=== PATIENT | female | born 1945 | race Caucasian/White ===

== ENCOUNTER → 2018-01-02 10:23 | Outpatient (CLI) | payer MEDICARE, OTHER, SELFPAY ==
--- NOTE | 2018-01-02 10:29 | RAD_ITS ---
STUDY: X-RAY - CERVICAL SPINE REASON FOR EXAM: Female, 72 years old. Headaches. TECHNIQUE: 6 view(s) of the cervical spine were obtained including oblique views. COMPARISON: None FINDINGS: There are degenerative changes of the anterior atlantoaxial articulation. Normal odontoid process. Normal cervical lordosis. Anterior spondylosis at the C4-C5 and C5-C6 levels. There is multi-level degenerative disc disease with multilevel disc space narrowing. Facet joint osteoarthritis. There are atherosclerotic vascular calcifications of the carotid arteries. RAD/Cerv Spine 4 or 5 Views IMPRESSION: The space narrowing and mild anterior spondylosis at the C4-C5 and C5-C6 levels. Electronically Signed: Teodoro Monique MD at 14:15 EST Tel [phone], Service support ,
== END ==
PROVIDERS: Family Provider Family Medicine; PCP Family Medicine; Visit Provider Family Medicine
DX: R51 Headache (principal)
CPT/HCPCS: 72050

== ENCOUNTER 2018-01-27 11:30 | Outpatient (RCR) | payer MEDICARE, OTHER, SELFPAY ==
--- NOTE | 2018-01-09 11:38 | HP.PTEVAL_ITS ---
Patient's Visit Information ILANA RAMÍREZ is a 72 year old F referred to Physical Therapy by Chavez MANN with a diagnosis of HEADACHE, NECK PAIN, TENSION AND TIGHT. Date of Evaluation: 01/09/18 Physical Therapist: Karla Elizabeth - Visit Plan Frequency: 2-3x /Week Duration: 4-6 Weeks Plan: CERVICAL STM, US, ROM AND STRETCHING. CERVICAL ISOMETRICS. POSTURE CORRECTION/STRENGTHEING. WRITTEN HEP. - Subjective Subjective: Work/Leisure: RETIRED. WALKS A FEW TIMES A WEEK ABOUT 30 MIN. Disability: NO. Present symptoms: ODELL NECK PAIN WITH CRUNCHING SOUNDS. INTERMITTENT PICKETT'S. NOT SURE HOW OFTEN SHE IS HAVING PICKETT'S. Present since: ABOUT A YEAR OR TWO. Pain Scale: WORST 8/10, LEAST 0/10. Currently: 4/10. Commenced as a result of: NO APPARENT REASON. Symptoms at onset: SAME. Worse : I DON'T KNOW. Better: IBUPROFEN, HEATING PAD. Disturbed sleep: NO. Previous history/Previous treatment: JUST IBUPROFEN AND HEATING PAD. DIZZINESS : NO. TINNITIS: NO. NAUSEA: NO. DIFFICULTY SWOLLOWING: NO. Gait: NORMAL. Accidents: NO. Unexplained weight loss: NO. Imaging: NECK X-RAY RECENTLY - 3 AREAS LOOKING NOT SO GOOD. MRI ABOUT 3-4 WEEKS AGO - I REALLY WASN'T EVEN LOOKING AT IT. THIS THERAPIST WAS NOT ABLE TO FIND A NECK MRI IN THE EMR. PMH: UNREMARKABLE. Recent major surgery: NONE RECENT. OTHER: THIS PT CALLED AND SPOKE TO BEBE AT DR. MORTON'S OFFICE DUE TO PATIENTS CONFUSION DURING MEDICAL HISTORY REPORTING. KIM REPORTS PATIENT HAS BEEN DIAGNOSED WITH DEMENTIA AND HAS A REFERRAL FOR A SPECIALIST AT [facility]. SHE HAS NOT HAD AN MRI OF HER NECK. - Objective Sitting Posture: FAIR. MILD FORWARD HEAD AND ROUNDED SHOULDERS. Active Correction of posture: NE. Other Observations: PATIENT IS PLEASANT AND COOPERATIVE TO WORK WITH. SHE IS ABLE TO FOLLOW SIMPLE COMMANDS WELL BUT SEEMS TO GET CONFUSED DURING SUBJECTIVE INTERVIEW. Motor deficit: ODELL UE'S GROSSLY 4/ 5. Sensory deficit: ODELL UE LIGHT TOUCH SENSATION APPEARS TO BE INTACT AND SYMMETRICAL. ROM deficit: ODELL UE ROM WFL. Reflexes: UNABLE TO ELICIT ODELL UE DTR'S BUT PATIENT VERY GUARDED. Dural Signs: NEGATIVE. CERVICAL MVMT LOSS: FLEX - NIL, PRO - NIL, EXT - MIN, RET - MOD, ODELL SB - MIN TO MOD, ODELL ROT - MIN. PATIENT HAS C/O CRUNCHING BUT NOT INCREASED PAIN WITH CERVICAL ROM TESTING INTO ODELL SB AND ROTATION ESPECIALLY LEFT ROATION. Palpation: PATIENT HAS INCREASED MUSCLE TONE WITH PALPATION OF ODELL CERVICAL MUSCULATURE. SHE DENIES PAIN WITH PALPATION OF CERVICAL SPINE, THORACIC SPINE AND OCCIPUT. - Goals Goal 1:: DECREASE C/O HEAD AND NECK PAIN (AND CRUNCHING IN NECK WITH MVMT). Goal Time Frame: 4-6 Weeks Goal 2:: INCREASE FUNCTION ROM OF NECK. Goal Time Frame: 4-6 Weeks Goal 3:: IMPROVE POSTURE CONTROL AND STRENGTH Goal Time Frame: 4-6 Weeks Goal 4:: INSTRUCT IN PROPHYLAXIS Goal Time Frame: 4-6 Weeks - Rehabilitation Potential Rehabilitation Potential: Fair - Anticipated Interventions Patient/Client Instruction: Educate patient on: Condition, Plan of Care, Risk Factors, Benefits of Fitness Program For the Purpose of:: To improve self management Therapeutic Exercise to Include: Strength training, Postural training, Flexibilty training, Active ROM, Scapular Strength/Stabilization For the Purpose of:: To decrease pain, To increase ROM, To improve ability of physical actions for home/community/work/leisure Manual Therapy Techniques to Include: Soft tissue mobilization For the Purpose of:: To decrease pain, To increase ROM Thermo therapy (hot pack): Yes Ultrasound (thermal/non thermal): Yes For the Purpose of:: To decrease pain, To increase ROM Thank you for the opportunity to evaluate your patient. For Medicare and Medicare HMO plans, please review the plan of care and approve it. It will need to be FAXED BACK to us at [phone] for Medicare purposes. Please let me know if there are questions or concerns regarding this plan of care. Physician Signature: Date:
--- NOTE | 2018-01-27 11:54 | HP.PTDCSUM_ITS ---
HP - PT D/C Summary It has been my pleasure to treat ILANA RAMÍREZ under orders from Chavez Morton, for the diagnosis of HEADACHE, NECK PAIN, TENSION AND TIGHT for a total of 5 visit(s). Discharge Date: 01/27/18 Please see the following information for a summary of their discharge status. - Subjective Subjective: PATIENT REPORTS SHE IS NOT GOING TO COME BACK TO PT BECAUSE SHE IS LEAVING SATURDAY FOR 2 WEEKS. PATIENT REPORTS SHE IS A LITTLE BETTER SINCE STARTING PT. PATIENT REPORT SHE WANTS TO WAIT TO SEE HOW SHE IS AFTER PT TO DECIDE IF SHE WANTS TO COME BACK. SHE PLANS TO SEE DR. MORTON IN JANUARY WHEN SHE GETS BACK. PATIENT REPORTS COMPLIANCE WITH HEP AND PLANS TO CONTINUE THEM. STATES THEY HELP HER NECK FEEL BETTER BUT THE PILL IS WHAT HELPS HER HEADACHE. - Pain NECK Pain Intensity (Out of 10): Unrated - Objective Objective/Function: UPON EXAM, THERE ARE NO SIGNIFICANT OBJECTIVE CHANGES WITH TESTING TODAY COMPARED TO INITIAL EVAL HOWEVER PATIENT IS INDEP WITH A HEP NOW ( WITH WRITTEN INSTRUCTIONS) AND SHE REPORTS SHE FEELS BETTER DURING AND AFTER THE EX'S. CERVICAL MVMT LOSS: FLEX - NIL, PRO - NIL, EXT - MIN, RET - MOD, ODELL SB - MOD, ODELL ROT - MIN. PATIENT HAS C/O CRUNCHING BUT NOT INCREASED PAIN WITH CERVICAL ROM TESTING INTO ODELL SB AND ROTATION ESPECIALLY LEFT ROATION SHE DID AT INITIAL EVAL. Palpation: PATIENT HAS INCREASED MUSCLE TONE WITH PALPATION OF ODELL CERVICAL MUSCULATURE. SHE DENIES PAIN WITH PALPATION OF CERVICAL SPINE, THORACIC SPINE AND OCCIPUT. - Goals Goal 1:: DECREASE C/O HEAD AND NECK PAIN (AND CRUNCHING IN NECK WITH MVMT). Goal 2:: INCREASE FUNCTION ROM OF NECK. Goal Progress: Progressing Goal 3:: IMPROVE POSTURE CONTROL AND STRENGTH Goal 4:: INSTRUCT IN PROPHYLAXIS - Plan Plan: PROGRESS STRETCHING AT HOME NEXT VISIT. AND TRY STM IN SUPINE. - D/C Information If there are questions or concerns regarding this patient's physical therapy, please feel free to call me at [phone]. Thank you for the referral of this patient. Sincerely, Karla Elizabeth
== END 2018-01-27 19:00 | disposition home or self-care (01) ==
LOC: PT 11:30
PROVIDERS: Family Provider Family Medicine; PCP Family Medicine; Visit Provider Family Medicine
DX: M54.12 Radiculopathy, cervical region (principal); R51 Headache
CPT/HCPCS: 97035; 97140; 97162; 97530

== ENCOUNTER → 2018-08-05 12:10 | Outpatient (CLI) | payer MEDICARE, OTHER, SELFPAY | PROVIDERS: Family Provider Family Medicine; PCP Family Medicine | DX: G93.40 Encephalopathy, unspecified (principal); R90.89 Other abnormal findings on diagnostic imaging of central nervous system; Z86.73 Personal history of transient ischemic attack (TIA), and cerebral infarction without residual deficits | CPT/HCPCS: 70544; 70549; 70553; A9585 ==

== ENCOUNTER → 2018-08-06 12:48 | Outpatient (CLI) | payer MEDICARE, OTHER, SELFPAY | PROVIDERS: Family Provider Family Medicine; PCP Family Medicine | DX: Z86.73 Personal history of transient ischemic attack (TIA), and cerebral infarction without residual deficits (principal) | CPT/HCPCS: 93306; A4216 ==

== ENCOUNTER → 2019-01-22 08:28 | Outpatient (CLI) | payer MEDICARE, OTHER, SELFPAY ==
[2019-01-22 10:31] LABS: Color, Urine Yellow (Yellow); Glucose, Dipstick Normal (Normal); Ketone-Dipstick Negative (Negative); Leukocyte Esterase-Dipstick Negative /ul (Negative); Nitrite-Dipstick Negative (Negative); Occult Blood-Urine Negative /ul (Negative); Protein-Dipstick Negative (Negative); Urine Bilirubin Dipstick Negative (Negative); Urine Clarity Clear (Clear); Urine Urobilinogen Normal (Normal)
[2019-01-22 10:42] LABS: Vitamin D,25 Hydroxy 45.2 ng/mL (29.95-100.01)
[2019-01-22 10:55] LABS: Anion Gap 7 (5-15); BUN 21 mg/dL (7-18); BUN/Creat Ratio 26.5 RATIO (10-20); Calcium,Total 8.7 mg/dL (8.5-10.1); Chloride 107 mmol/L (98-107); Cholesterol 213 mg/dL (200); Creatinine, Serum 0.79 mg/dL (0.55-1.02); EST Glomerular Filtration Rate 76 mL/min (>60); Est Glom Filt Rate - Afr Amer 92 mL/min (>60); Glucose 90 mg/dL (74-106); High Density Lipoprotein 60 mg/dL; Potassium 4.3 mmol/L (3.5-5.1); Sodium Level 144 mmol/L (136-145); Thyroid Stim Hormone (TSH) 2.07 uIU/mL (0.358-3.74); Triglycerides 57 mg/dL; Very Low Density Lipoprotein 11 mg/dL (5-40)
== END ==
PROVIDERS: Family Provider Family Medicine; PCP Family Medicine; Visit Provider Family Medicine
DX: M85.80 Other specified disorders of bone density and structure, unspecified site (principal); Z13.220 Encounter for screening for lipoid disorders
CPT/HCPCS: 36415; 80048; 80061; 81002; 82306; 84443

== ENCOUNTER → 2019-01-27 13:22 | Outpatient (CLI) | payer MEDICARE, OTHER, SELFPAY ==
--- NOTE | 2019-01-27 13:29 | BD_ITS ---
STUDY: DUAL ENERGY X-RAY ABSORPTIOMETRY / DXA REASON FOR EXAM: Female, 73 years old. The patient is postmenopausal. Loss of height. TECHNIQUE: Bone Mineral Density (BMD) measurements of lumbar spine and bilateral hips were obtained. COMPARISON: Comparison is made with prior study dated February 06, 2000. FINDINGS: Lumbar Spine (L1-L4): g/cm2 (0.911) / T-score (-2.2) / Z-score (-0.5) Findings are suggestive of osteopenia with a moderate fracture risk. Left Femur Total: g/cm2 (0.762) / T-score (-2.0) / Z-score (-0.3) Left Femoral Neck: g/cm2 (0.747) / T-score (-2.1) / Z-score (-0.3) Right Femur Total: g/cm2 (0.766) / T-score (-1.1) / Z-score (-0.3) Right Femoral Neck: g/cm2 (0.757) / T-score (-2.0) / Z-score (0.2) The T-Scores on the most recent prior examination were: Lumbar Spine (L1-L4): There has been worsening of bone density since the previous examination. Left Femur Total: which represents a worsening of 23.3%. BD/Dexa Bone Density Study IMPRESSION: The patient is considered osteopenic as outlined below according to World [place] Organization (WHO) criteria with a moderate fracture risk. There has been worsening of bone density since the previous examination. Reference Information: The T-score is the number of standard deviations above or below the standard which is normal for young adults at their peak bone mineral density. The World Health Organization (WHO) interprets the T-scores as follows: Above -1 Normal bone density Between -1 and -2.5 Osteopenia Equal to / or below -2.5 Osteoporosis As a practical clinical guideline, osteopenia may be graded as follows: Mild -1 through -1.5 Moderate -1.6 through -2.0 Severe -2.1 through -2.4 The Z-score is the number of standard deviations above or below age-matched controls. A Z-score of less than -1.5 would be considered abnormal. References: 1. NIH Osteoporosis and Related Bone Diseases http://www.osteo.org 2. International Society for Clinical Densitometry http://www.iscd.org 3. National Osteoporosis Foundation http://www.nof.org Electronically Signed: Teodoro Monique, at 13:32 EST , Service support ,
== END ==
PROVIDERS: Family Provider Family Medicine; PCP Family Medicine; Visit Provider Family Medicine
DX: Z78.0 Asymptomatic menopausal state (principal); M85.80 Other specified disorders of bone density and structure, unspecified site
CPT/HCPCS: 77080

== ENCOUNTER → 2019-09-02 07:54 | Outpatient (CLI) | payer MEDICARE, OTHER, SELFPAY ==
--- NOTE | 2019-09-02 07:56 | BI_ITS ---
MAMMOGRAPHY - BILATERAL SCREENING REASON FOR EXAM: Female, 74 years old. Routine annual screening examination. PERTINENT HISTORY: Non-contributory. TECHNIQUE: Digital bilateral breast waqar (3D mammographic acquisition) in the CC and MLO projections. 2-D mediolateral oblique (MLO) and craniocaudad (CC) views of both breasts were obtained. CAD: Full Field Digital Mammography with Computer Added Detection was performed. COMPARISON: Comparison is made with prior outside examination September 01, 2018. FINDINGS: Breast Composition: The breasts are extremely dense, which lowers the sensitivity of mammography. There are no dominant masses or suspicious calcifications. No other significant abnormalities are identified. There has been no significant change since the prior study. BI/SCREEN MAMM (CAD) W/WAQAR BILAT IMPRESSION: Stable bilateral screening mammogram. Yearly follow-up mammogram recommended. (A) ASSESSMENT CATEGORY: BIRADS Category 1: Negative. A letter regarding these results will be sent to the patient by the facility within 30 days. Approximately 10% of breast cancers are not detected by mammography. A normal mammogram should not delay biopsy of a clinically suspicious abnormality. [id number] Electronically Signed: Teodoro Monique, at 9:54 EDT , Service support ,
== END ==
PROVIDERS: Family Provider Family Medicine; PCP Family Medicine; Referring Provider Family Medicine; Visit Provider Family Medicine
DX: Z12.31 Encounter for screening mammogram for malignant neoplasm of breast (principal)
CPT/HCPCS: 77063; 77067

== ENCOUNTER → 2020-04-06 08:37 | Outpatient (CLI) | payer MEDICARE, OTHER, SELFPAY ==
[2020-04-06 09:55] LABS: Hemoglobin 13.2 g/dL (12.0-15.0); Mean Corpuscular Hgb 32.8 pg (27.0-32.0); Mean Corpuscular Volume 99.5 fL (81-99); Mean Platelet Vol. 10.4 fl (6.2-12.0); Platelet Count 281 K/mm3 (150-450); RBC Distribution Width CV 12.4 % (11.6-14.6); RBC Distribution Width SD 45.2 fl (35.1-43.9); Red Blood Count 4.02 M/mm3 (4.2-5.4); White Blood Count 2.8 K/mm3 (4.4-11.0)
[2020-04-06 10:16] LABS: Vitamin D,25 Hydroxy 71.8 ng/mL
[2020-04-06 10:22] LABS: Anion Gap 4 (5-15); BUN 25 mg/dL (7-18); BUN/Creat Ratio 29.6 RATIO (10-20); Calcium,Total 8.8 mg/dL (8.5-10.1); Chloride 107 mmol/L (98-107); Cholesterol 243 mg/dL (200); Creatinine, Serum 0.85 mg/dL (0.55-1.02); EST Glomerular Filtration Rate 70 mL/min (>60); Est Glom Filt Rate - Afr Amer 85 mL/min (>60); Glucose 78 mg/dL (74-106); High Density Lipoprotein 70 mg/dL; Potassium 4.3 mmol/L (3.5-5.1); Sodium Level 143 mmol/L (136-145); Thyroid Stim Hormone (TSH) 2.33 uIU/mL (0.358-3.74); Triglycerides 51 mg/dL; Very Low Density Lipoprotein 10 mg/dL (5-40)
== END ==
PROVIDERS: PCP Family Medicine; Visit Provider Family Medicine
DX: K58.9 Irritable bowel syndrome, unspecified (principal); M85.80 Other specified disorders of bone density and structure, unspecified site; F41.9 Anxiety disorder, unspecified; Z13.220 Encounter for screening for lipoid disorders
CPT/HCPCS: 36415; 80048; 80061; 82306; 84443; 85027

== ENCOUNTER → 2020-10-11 08:16 | Outpatient (CLI) | payer MEDICARE, OTHER, SELFPAY ==
--- NOTE | 2020-10-11 08:18 | BI_ITS ---
MAMMOGRAPHY - BILATERAL SCREENING REASON FOR EXAM: Female, 75 years old. Routine annual screening examination. PERTINENT HISTORY: Non-contributory. TECHNIQUE: Digital bilateral breast waqar (3D mammographic acquisition) in the CC and MLO projections. 2-D mediolateral oblique (MLO) and craniocaudad (CC) views of both breasts were obtained. CAD: Full Field Digital Mammography with Computer Added Detection was performed. COMPARISON: Comparison is made with prior study dated 09/02/2019. FINDINGS: Breast Composition: The breasts are extremely dense, which lowers the sensitivity of mammography. There are no dominant masses or suspicious calcifications. No other significant abnormalities are identified. There has been no significant change since the prior study. BI/SCREEN MAMM (CAD) W/WAQAR BILAT IMPRESSION: Stable bilateral screening mammogram. Yearly follow-up mammogram recommended. (A) ASSESSMENT CATEGORY: BIRADS Category 1: Negative. A letter regarding these results will be sent to the patient by the facility within 30 days. Approximately 10% of breast cancers are not detected by mammography. A normal mammogram should not delay biopsy of a clinically suspicious abnormality. [id number] Electronically Signed: Teodoro Monique, at 9:57 EST , Service support ,
== END ==
PROVIDERS: PCP Family Medicine; Referring Provider Family Medicine; Visit Provider Family Medicine
DX: Z12.31 Encounter for screening mammogram for malignant neoplasm of breast (principal)
CPT/HCPCS: 77063; 77067

== ENCOUNTER → 2021-06-08 14:53 | Outpatient (CLI) | payer MEDICARE, OTHER, SELFPAY ==
--- NOTE | 2021-06-08 14:57 | RAD_ITS ---
STUDY: X-RAY - CERVICAL SPINE REASON FOR EXAM: Female, 76 years old. CERVICALGIA TECHNIQUE: 5 view(s) of the cervical spine were obtained including oblique views. COMPARISON: Comparison is made with prior study dated 01/02/2008. FINDINGS: Normal anterior atlantoaxial articulation. Normal odontoid process. Normal cervical lordosis. There is multi-level endplate spondylosis. There is multi-level degenerative disc disease with multilevel disc space narrowing. This is worse at the C4-C5 and C5-C6 levels. Normal visualized intervertebral neuroforamina. Facet joint osteoarthritis. The soft tissue structures are unremarkable. RAD/Cerv Spine 4 or 5 Views IMPRESSION: Normal x-ray examination of the visualized cervical spine. Electronically Signed: Teodoro Monique MD at 15:16 EDT , Service support ,
== END ==
PROVIDERS: PCP Family Medicine; Referring Provider Family Medicine; Visit Provider Family Medicine
DX: M54.2 Cervicalgia (principal)
CPT/HCPCS: 72050

== ENCOUNTER 2021-07-24 13:00 | Outpatient (RCR) | payer MEDICARE, OTHER, SELFPAY ==
--- NOTE | 2021-06-23 15:09 | HP.PTEVAL_ITS ---
Patient's Visit Information ILANA RAMÍREZ is a 76 year old F referred to Physical Therapy by Dr. Zain Perez MD with a diagnosis of CERVICALGIA. Date of Evaluation: 06/23/21 Physical Therapist: Karla Elizabeth PT, Cert MDT - Visit Plan Frequency: 2-3x /Week Duration: 4-6 Weeks Plan: DEMENTIA DO NOT LEAVE PATIENT UNATTENDED BEFORE, DURING OR AFTER TREATMENT. US X 4-6 TREATMENTS TO ODELL POSTERIOR CERVICAL REGIONS. POSTURE CORRECTION/STRENGTHENING, INSTRUCTION IN APPROPRIATE BODY MECHANICS AND ACTIVITY MODIFICATIONS. ODELL UE ROM, STRETCHING AND STRENGTHENING. HEP INSTRUCTION. CAREGIVER INSTRUCTION NEEDED. WRITTEN HEP NECESSARY. TRY THE FOLLOWING EX'S TOLERATED ABOUT 3 EX'S ADDED PER VISIT: REP RET IN SITTING. REP RET IN LYING. SCAP SQUEEZES. DEEP NECK FLEXOR LIFT. PRONE W'S. UE WALL SLIDES. PRONE ROWS. UE TBAND WALL WALKS. ANTERIOR/MIDDLE SCALENE STRETCH. UPPER TRAP STRETCH. LEVATOR SCAPULAE STRETCH. CHEST/PEC MAJOR AND MINOR STRETCH - Subjective Diagnosis: CERVICALGIA. LIKES TO WORK OUTSIDE. Work/Leisure: RETIRED. Present symptoms: RIGHT NECK PAIN. Present since: YEARS. Pain Scale: Worst - 9/10 Least - 0/10? Currently: 0/10. Commenced as a result of: SWEEPING DRIVEWAY WITH BROOM. Symptoms at onset: RIGHT NECK AND UPPER TRAP AREA. Worse: PATIENT UNABLE TO ANSWER BUT PATIENT'S REPORTS IT SEEMS TO BE AFTER SHE WORKS OUTSIDE. Better: PATIENT AGAIN UNABLE TO ANSWER BUT PATIENTS REPORTS A HEATING PAD AND MALOXACAM SEEMS TO HELP. Disturbed sleep: NO. Previous history/Previous treatment: PT ABOUT 2018. NO CLEANER AND POLISHER CONSULTS. NO PAIN MGMT. This episode: MALOXACAM, PT CONSULT. Dizziness: NO. Tinnitis: NO. Nausea: NO. Shortness of Breath: NO. Difficulty Swollowing: NO. Gait: NORMAL. Accidents: NO. Unexplained weight loss: NO. Imaging: STUDY: X-RAY - CERVICAL SPINE. REASON FOR EXAM: Female, 76 years old. CERVICALGIA. TECHNIQUE: 5 view(s) of the cervical spine were obtained including. oblique views. COMPARISON: Comparison is made with prior study dated 01/02/2008. . FINDINGS: Normal anterior atlantoaxial articulation. Normal odontoid process. Normal cervical lordosis. There is multi-level endplate spondylosis. There is multi-level degenerative disc disease with multilevel disc space. narrowing. This is worse at the C4-C5 and C5-C6 levels. Normal visualized. intervertebral neuroforamina. Facet joint osteoarthritis. The soft tissue structures are unremarkable. . RAD/Cerv Spine 4 or 5 Views. IMPRESSION: Normal x-ray examination of the visualized cervical spine. . Electronically Signed: Teodoro Monique MD. at 15:16 EDT. PMH/Recent major surgery: COGNITIVE DECLINE PER . - Objective COGNITIVE: PATIENT IS HAVING DIFFICULTY FOLLOWING SIMPLE COMMANDS. RESPONDS BETTER TO VISUAL CUES THAN VERBAL. TACTILE CUES HELP TOO. PATIENTS IS VERY HELPFUL WITH HISTORY AND HELPING PATIENT FOLLOW DIRECTIONS FOR TESTING TODAY. Sitting Posture/Standing Posture: FH. RS'S. Active Correction of posture: NE. Other Observations: INDEP GAIT AND TRANSFERS. PATIENT RUBS THE RIGHT SIDE OF HER NECK A LOT DURING SESSION TODAY. Motor deficit: ODELL UE STRENGTH WFL. Sensory deficit: ODELL UE LIGHT TOUCH SENSATION APPEARS INTACT AND SYMMETRICAL. ROM deficit: ODELL UE ROM WFL. Reflexes: NT. Dural Signs: NEGATIVE. Cervical Mvmt Loss: Flex: NIL. Pro: NIL. Ext: MOD. Ret: MEHUL. RSB: MIN. LSB: MOD. R Rot: MOD. L Rot: MOD. PATIENT C/O INCRASED RIGHT NECK PAIN WITH L SB TESTING. Postural strength: FAIR. Palpation: NO ACUTE TENDERNESS WITH PALPATION OF ODELL UT'S, UPPER THORACIC SPINE, CERVICAL SPINE OR OCCIPUT REGIONS BUT INCREASED ODELL CERVICAL MUSCLE TONE THROUGHOUT. TREATMENT: NEUROMUSCULAR REEDUCATION - RETRAINING OF MVMT AND POSTURE FOR SITTING AND STANDING ACTIVITIES. EDUCATED ON PROPER POSTURE CONTROL FOR PATIENT AND ASSESMENT OF POSTURE IN HER FAVORITE CHAIR. ALSO INSTRUCTED PATIENT AND IN APPROPRIATE ACTIVITY MODIFICATIONS AVOIDING PROLONGED OVER-HEAD REACHING/LOOKING UP, PROLONGED REACHING AND EXCESSIVE REPETATIVE ACTIVITIES WITHOUT TAKING BREAKS SUCH SWEEPING THE DRIVEWAY. IS ABLE TO COMMUNICATE A GOOD UNDERSTANDING OF INSTRUCTIONS HOWEVER PATIENT IS NOT. OTHER: CASE CONFERENCE TODAY WITH SEVERO Rangel THE KNITTING MACHINE OPERATOR SHE IS SCHEDULED WITH AFTER EVAL. - Balance/Special Test Scores Oswestry Neck Score: 7 - Goals Goal 1:: DECREASE C/O R NECK PAIN Goal Time Frame: 4-6 Weeks Goal 2:: IMPROVE LIFTING, HOMEMAKING AND RECREATIONAL PAINFREE FUNCTION. Goal Time Frame: 4-6 Weeks Goal 3:: INSTRUCT IN PROPHYLAXIS Goal Time Frame: 4-6 Weeks - Anticipated Interventions Patient/Client Instruction: Educate patient on: Condition, Plan of Care, Risk Factors For the Purpose of:: To improve self management Therapeutic Exercise to Include: Strength training, Body mechanics, Postural training, Flexibilty training, Neuromotor development, Scapular Strength/Stabilization For the Purpose of:: To decrease pain, To increase ROM, To improve muscle performance and motor function, To increase tolerance to activity/condition/position, To improve ability of physical actions for home/community/work/leisure Ultrasound (thermal/non thermal): Yes For the Purpose of:: To decrease pain, To improve nutrient delivery to tissue Thank you for the opportunity to evaluate your patient. For Medicare and Medicare HMO plans, please review the plan of care and approve it. It will need to be FAXED BACK to us at [phone] for Medicare purposes. For Medicare only, by signing this I certify the plan of care. Please let me know if there are questions or concerns regarding this plan of care. Physician Signature: Date:
--- NOTE | 2021-07-24 13:22 | HP.PTDCSUM ---
It has been my pleasure to treat ILANA RAMÍREZ referred by Dr. Zain Perez MD, with the diagnosis of CERVICALGIA for a total of 10 visit(s). Discharge Date: Please see the following information for a summary of their discharge status. Subjective: PATIENTS ANSWERED THIS PT'S QUESTIONS FOR PATIENT TODAY AND FILLED OUT THE QUESTIONAIRE FOR HER. ANKITAMISHA STATES PATIENT DOES NOT SEEM TO BE HAVING A PROBLEM WITH HER NECK ANYMORE AND THE HOME EX'S ARE GOING WELL. PATIENTS REPORTS THE PAIN BEHAVIOR HE WAS SEEING BEFORE SEEMS TO BE GONE. % Improvement: 100 Objective/Function: PATIENT WAS SEEN TODAY FOR RE-ASSESSMENT OF PROGRESS TOWARD THE SET PT GOALS AND THE NEED FOR FURTHER PHYSICAL THERAPY VS READINESS FOR DISCHARGE. UPON EXAM TODAY OBJECTIVE TEST MEASUREMENTS ARE THE SAME AT INITIAL EVAL EXCEPT PATIENT IS NOT RUBBING THE SIDE OF HER NECK AND DENIES PAIN WITH CERVICAL ROM TESTING ALL PLANES. Goal 1:: DECREASE C/O R NECK PAIN Goal Progress: Goal Met Goal 2:: IMPROVE LIFTING, HOMEMAKING AND RECREATIONAL PAINFREE FUNCTION. Goal Progress: Goal Met Goal 3:: INSTRUCT IN PROPHYLAXIS Goal Progress: Goal Met Plan: D/C TO HEP. PATIENT AND AGREEABLE. If there are questions or concerns regarding this patient's physical therapy, please feel free to call me at [phone]. Thank you for the referral of this patient. Sincerely, Karla Elizabeth, PT, Cert MDT Balance/Gait/Functional tests - Balance/Special Test Scores Oswestry Neck Score: 2
== END 2021-07-24 15:52 | disposition home or self-care (01) ==
LOC: PT 13:00
PROVIDERS: PCP Family Medicine; Referring Provider Family Medicine; Visit Provider Family Medicine
DX: M54.2 Cervicalgia (principal)
CPT/HCPCS: 97035; 97110; 97112; 97162; 97164

== ENCOUNTER → 2021-09-11 13:42 | Outpatient (CLI) | payer MEDICARE, OTHER, SELFPAY | PROVIDERS: PCP Family Medicine; Visit Provider Family Medicine | DX: R35.0 Frequency of micturition (principal) | CPT/HCPCS: 87086; 87088 ==

== ENCOUNTER → 2021-09-12 07:27 | Outpatient (CLI) | payer MEDICARE, OTHER, SELFPAY ==
[2021-09-12 09:57] LABS: Hematocrit 37.4 % (37-47); Hemoglobin 12.8 g/dL (12.0-15.0); Mean Corp Hgb Conc 34.2 g/dL (32-36); Mean Corpuscular Hgb 33.9 pg (27.0-32.0); Mean Corpuscular Volume 98.9 fL (81-99); Mean Platelet Vol. 10.4 fl (6.2-12.0); Platelet Count 230 K/mm3 (150-450); RBC Distribution Width CV 13.1 % (11.6-14.6); RBC Distribution Width SD 47.7 fl (35.1-43.9); Red Blood Count 3.78 M/mm3 (4.2-5.4)
[2021-09-12 10:31] LABS: ALB/GLOB Ratio 1.1 RATIO (0.9-2.4); AST(SGOT) 18 U/L (15-37); Alanine Aminotransfer ALT/SGPT 27 U/L (13-56); Albumin, Serum 3.4 g/dL (3.2-5.0); Alkaline Phosphatase 114 U/L (45-117); Anion Gap 8 (5-15); BUN 26 mg/dL (7-18); BUN/Creat Ratio 31.4 RATIO (10-20); Calcium,Total 8.7 mg/dL (8.5-10.1); Chloride 105 mmol/L (98-107); Cholesterol 174 mg/dL (200); Creatinine, Serum 0.83 mg/dL (0.55-1.02); EST Glomerular Filtration Rate 72 mL/min (>60); Est Glom Filt Rate - Afr Amer 87 mL/min (>60); Globulin 3.1 g/dL (2.2-4.2); Glucose 88 mg/dL (74-106); High Density Lipoprotein 70 mg/dL; Potassium 4.1 mmol/L (3.5-5.1); Protein, Total 6.5 g/dL (6.4-8.2); Sodium Level 142 mmol/L (136-145); Triglycerides 39 mg/dL; Very Low Density Lipoprotein 8 mg/dL (5-40)
[2021-09-12 10:40] LABS: Vitamin D,25 Hydroxy 66.2 ng/mL
== END ==
PROVIDERS: PCP Family Medicine; Referring Provider Family Medicine; Visit Provider Family Medicine
DX: E78.5 Hyperlipidemia, unspecified (principal); R41.3 Other amnesia; M85.80 Other specified disorders of bone density and structure, unspecified site
CPT/HCPCS: 36415; 80053; 80061; 82306; 84443; 85027

== ENCOUNTER → 2021-10-31 12:26 | Outpatient (CLI) | payer MEDICARE, OTHER, SELFPAY ==
--- NOTE | 2021-10-31 12:30 | BI_ITS ---
MAMMOGRAPHY - BILATERAL SCREENING REASON FOR EXAM: Female, 76 years old. Routine annual screening examination. PERTINENT HISTORY: Non-contributory. TECHNIQUE: Digital bilateral breast fausto (3D mammographic acquisition) in the CC and MLO projections. 2-D mediolateral oblique (MLO) and craniocaudad (CC) views of both breasts were obtained. CAD: Full Field Digital Mammography with Computer Added Detection was performed. COMPARISON: Comparison is made with prior study dated 10/11/2020 and 09/02/2019. FINDINGS: Breast Composition: The breasts are extremely dense, which lowers the sensitivity of mammography. There are no dominant masses or suspicious calcifications. No other significant abnormalities are identified. There has been no significant change since the prior study. BI/SCREENING MAMM (CAD), BILAT IMPRESSION: Stable bilateral screening mammogram. Yearly follow-up mammogram recommended. (A) ASSESSMENT CATEGORY: BIRADS Category 1: Negative. A letter regarding these results will be sent to the patient by the facility within 30 days. Approximately 10% of breast cancers are not detected by mammography. A normal mammogram should not delay biopsy of a clinically suspicious abnormality. [id number] Electronically Signed: Teodoro Monique MD at 13:26 EST , Service support ,
--- NOTE | 2021-10-31 13:46 | BD_ITS ---
STUDY: DUAL ENERGY X-RAY ABSORPTIOMETRY / DXA REASON FOR EXAM: Female, 76 years old. [id number]. The patient is postmenopausal. TECHNIQUE: Bone Mineral Density (BMD) measurements of lumbar spine and bilateral hips were obtained. COMPARISON: Comparison is made with prior study dated 01/27/2019. FINDINGS: Lumbar Spine (L1-L4): g/cm2 (0.744) / T-score (-2.5) / Z-score (-0.1) Findings are suggestive of osteopenia with a high fracture risk. Left Femur Total: g/cm2 (0.693) / T-score (-2.0) / Z-score (-0.2) Left Femoral Neck: g/cm2 (0.594) / T-score (-2.3) / Z-score (-0.2) Right Femur Total: g/cm2 (0.715) / T-score (-1.9) / Z-score (-0.1) Right Femoral Neck: g/cm2 (0.594) / T-score (-2.3) / Z-score (-0.2) The T-Scores on the most recent prior examination were: Lumbar Spine (L1-L4): There has been worsening of bone density since the previous examination. Left Femur Total: which represents a worsening of 1.4%. Right Femur Total: which represents an improvement of 1.1%. BD/Dexa Bone Density Study IMPRESSION: The patient is considered osteopenic as outlined below according to [place] Organization (WHO) criteria with a moderate fracture risk. There has been worsening of bone density since the previous examination. Reference Information: The T-score is the number of standard deviations above or below the standard which is normal for young adults at their peak bone mineral density. The World Health Organization (WHO) interprets the T-scores as follows: Above -1 Normal bone density Between -1 and -2.5 Osteopenia Equal to / or below -2.5 Osteoporosis As a practical clinical guideline, osteopenia may be graded as follows: Mild -1 through -1.5 Moderate -1.6 through -2.0 Severe -2.1 through -2.4 The Z-score is the number of standard deviations above or below age-matched controls. A Z-score of less than -1.5 would be considered abnormal. References: 1. NIH Osteoporosis and Related Bone Diseases www osteo.org 2. International Society for Clinical Densitometry www iscd.org 3. National Osteoporosis Foundation www nof.org Electronically Signed: Teodoro Monique MD at 15:49 EST , Service support ,
== END ==
PROVIDERS: PCP Family Medicine; Referring Provider Family Medicine; Visit Provider Family Medicine
DX: Z00.00 Encounter for general adult medical examination without abnormal findings (principal); Z12.31 Encounter for screening mammogram for malignant neoplasm of breast; Z78.0 Asymptomatic menopausal state
CPT/HCPCS: 77067; 77080

== ENCOUNTER 2021-12-14 12:31 | Outpatient (CLI) | payer MEDICARE, OTHER, SELFPAY ==
[2021-12-14 12:39] LABS: Bacteria 0 SEEN /hpf (None Seen); Mucous, Urine 0 SEEN /hpf (<or=2+); Red Blood Cells-Urine 0 SEEN /hpf (0-5); Squamous Epithelial Cells - UA 0 SEEN /hpf (5-10); White Blood Cells 0 SEEN /hpf (0-5)
[2021-12-14 15:20] LABS: Color, Urine Yellow (Yellow); Glucose, Dipstick Normal (Normal); Ketone-Dipstick Negative (Negative); Leukocyte Esterase-Dipstick Negative /ul (Negative); Nitrite-Dipstick Negative (Negative); Occult Blood-Urine Negative /ul (Negative); Protein-Dipstick Negative (Negative); Urine Bilirubin Dipstick Negative (Negative); Urine Clarity Clear (Clear); Urine Urobilinogen Normal (Normal)
[2021-12-14 15:41] LABS: Absolute Lymphocyte Count 0.66 X10^3/uL (0.83-4.51); Absolute Neutrophil Count 2.5 X10^3/uL (2.0-7.7); Basophil# 0.03 X10^3/uL; Basophil% 0.8 % (0-1); Eosinophil# 0.26 X10^3/uL; Eosinophils% 6.7 % (0-5); Hematocrit 36.2 % (37-47); Hemoglobin 12.3 g/dL (12.0-15.0); Lymphocyte # 0.66 X10^3/ul (0.83-4.51); Lymphocyte % 17.1 % (19-41); Mean Corpuscular Hgb 34.4 pg (27.0-32.0); Mean Corpuscular Volume 101.1 fL (81-99); Mean Platelet Vol. 10.9 fl (6.2-12.0); Monocyte# 0.42 X10^3/uL; Monocyte% 10.9 % (0-10); NRBC Flagged by Analyzer 0 % (0-5); Neutrophil # 2.49 X10^3/uL (2.7-7.7); Neutrophil % 64.2 % (47-70); Platelet Count 248 K/mm3 (150-450); RBC Distribution Width CV 13.2 % (11.6-14.6); RBC Distribution Width SD 49.4 fl (35.1-43.9); Red Blood Count 3.58 M/mm3 (4.2-5.4); White Blood Count 3.9 K/mm3 (4.4-11.0)
== END 2021-12-14 23:59 | disposition short-term general hospital (02) ==
LOC: MFPLAB 12:32
PROVIDERS: PCP Family Medicine; Referring Provider Family Medicine; Visit Provider Family Medicine
DX: D72.819 Decreased white blood cell count, unspecified (principal); R35.0 Frequency of micturition
CPT/HCPCS: 36415; 81001; 85025; 87086; 87088

== ENCOUNTER → 2022-05-30 | Outpatient (CLI) | payer MEDICARE, OTHER, SELFPAY ==
[2022-05-30 09:52] LABS: Hematocrit 36.9 % (37-47); Hemoglobin 12.6 g/dL (12.0-15.0); Mean Corp Hgb Conc 34.1 g/dL (32-36); Mean Corpuscular Hgb 35.4 pg (27.0-32.0); Mean Corpuscular Volume 103.7 fL (81-99); Mean Platelet Vol. 10.2 fl (6.2-12.0); Platelet Count 218 K/mm3 (150-450); RBC Distribution Width CV 13.1 % (11.6-14.6); RBC Distribution Width SD 50.4 fl (35.1-43.9); Red Blood Count 3.56 M/mm3 (4.2-5.4); White Blood Count 2.1 K/mm3 (4.4-11.0)
[2022-05-30 10:10] LABS: Vitamin B12 618 pg/mL (211-911)
[2022-05-30 10:41] LABS: ALB/GLOB Ratio 1.3 RATIO (0.9-2.4); AST(SGOT) 16 U/L (15-37); Alanine Aminotransfer ALT/SGPT 22 U/L (13-56); Albumin, Serum 3.6 g/dL (3.2-5.0); Alkaline Phosphatase 90 U/L (45-117); Anion Gap 4 (5-15); BUN 26 mg/dL (7-18); BUN/Creat Ratio 32.1 RATIO (10-20); Calcium,Total 8.9 mg/dL (8.5-10.1); Chloride 108 mmol/L (98-107); Creatinine, Serum 0.81 mg/dL (0.55-1.02); EST Glomerular Filtration Rate 73 mL/min (>60); Est Glom Filt Rate - Afr Amer 88 mL/min (>60); Globulin 2.8 g/dL (2.2-4.2); Glucose 94 mg/dL (74-106); Potassium 3.9 mmol/L (3.5-5.1); Protein, Total 6.4 g/dL (6.4-8.2); Sodium Level 143 mmol/L (136-145)
[2022-06-05 16:58] LABS: Vitamin B1, Thiamine 144.6 nmol/L (66.5-200.0)
== END | disposition home or self-care (01) ==
PROVIDERS: PCP Family Medicine; Referring Provider Psychiatry & Neurology Neurology; Visit Provider Psychiatry & Neurology Neurology
DX: G30.1 Alzheimer's disease with late onset (principal); F02.80 Dementia in other diseases classified elsewhere, unspecified severity, without behavioral disturbance, psychotic disturbance, mood disturbance, and anxiety
CPT/HCPCS: 36415; 80053; 82607; 82746; 84425; 84443; 85027

== ENCOUNTER 2022-06-08 13:50 | Outpatient (CLI) | payer MEDICARE, OTHER, SELFPAY ==
--- NOTE | 2022-06-08 13:52 | CT_ITS ---
STUDY: CT BRAIN WITHOUT CONTRAST REASON FOR EXAM: Female, 77 years old. Dementia RADIATION DOSAGE (If Supplied By Facility): CTDIvol = ( 47.06 ) mGy, DLP = ( 819.74 ) mGycm TECHNIQUE: Transaxial CT imaging of the brain was performed without administration of intravenous contrast material. Individualized dose optimization techniques were used for this CT. COMPARISON: No relevant priors. FINDINGS: Normal soft tissue structures. Normal calvarium. Mild cortical atrophy with patchy chronic small vessel ischemic changes in the periventricular deep white matter tracts. Prominent ventricles, sulci and sylvian fissures due to atrophy. No midline shift. Small wedge-shaped focus of encephalomalacia with sulcal prominence in the left posterior parietal lobe, extending through the cortex and subcortical white matter.. The basal ganglia are symmetric. No intracranial mass. There is no intracranial hemorrhage. There are no findings of an acute ischemic infarction. The middle cerebral arteries are not hyperdense. Vascular is present. The visualized paranasal sinuses and mastoid air cells are clear. CT/Brain/Head without Contrast IMPRESSION: Atrophy with chronic small vessel ischemic changes. 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 No acute intracranial abnormality. Electronically Signed: Roberto Espinoza MD at 6:09 EDT ,
== END 2022-06-08 23:59 | disposition home or self-care (01) ==
LOC: CT 13:51
PROVIDERS: PCP Family Medicine; Referring Provider Psychiatry & Neurology Neurology; Visit Provider Psychiatry & Neurology Neurology
DX: G31.9 Degenerative disease of nervous system, unspecified (principal); F02.80 Dementia in other diseases classified elsewhere, unspecified severity, without behavioral disturbance, psychotic disturbance, mood disturbance, and anxiety; G93.89 Other specified disorders of brain
CPT/HCPCS: 70450

== ENCOUNTER → 2022-07-19 | Outpatient (REF) | payer MEDICARE, OTHER, SELFPAY ==
[2022-07-19 10:04] LABS: Hematocrit 35.5 % (37-47); Hemoglobin 12.2 g/dL (12.0-15.0); Mean Corp Hgb Conc 34.4 g/dL (32-36); Mean Corpuscular Hgb 35.8 pg (27.0-32.0); Mean Corpuscular Volume 104.1 fL (81-99); Mean Platelet Vol. 10.7 fl (6.2-12.0); Platelet Count 228 K/mm3 (150-450); RBC Distribution Width CV 13.1 % (11.6-14.6); RBC Distribution Width SD 50.4 fl (35.1-43.9); Red Blood Count 3.41 M/mm3 (4.2-5.4); White Blood Count 2.2 K/mm3 (4.4-11.0)
[2022-07-19 10:15] LABS: Vitamin B12 590 pg/mL (211-911); Vitamin D,25 Hydroxy 71.9 ng/mL
[2022-07-19 10:58] LABS: ALB/GLOB Ratio 1.1 RATIO (0.9-2.4); AST(SGOT) 16 U/L (15-37); Alanine Aminotransfer ALT/SGPT 22 U/L (13-56); Albumin, Serum 3.3 g/dL (3.2-5.0); Alkaline Phosphatase 95 U/L (45-117); Anion Gap 7 (5-15); BUN 24 mg/dL (7-18); BUN/Creat Ratio 32.6 RATIO (10-20); Calcium,Total 8.1 mg/dL (8.5-10.1); Chloride 108 mmol/L (98-107); Cholesterol 162 mg/dL (200); Creatinine, Serum 0.74 mg/dL (0.55-1.02); EST Glomerular Filtration Rate 81 mL/min (>60); Est Glom Filt Rate - Afr Amer 99 mL/min (>60); Globulin 2.9 g/dL (2.2-4.2); Glucose 95 mg/dL (74-106); High Density Lipoprotein 58 mg/dL; Potassium 3.8 mmol/L (3.5-5.1); Protein, Total 6.2 g/dL (6.4-8.2); Sodium Level 141 mmol/L (136-145); Thyroid Stim Hormone (TSH) 2.07 uIU/mL (0.358-3.74); Triglycerides 82 mg/dL; Very Low Density Lipoprotein 16 mg/dL (5-40)
== END ==
LOC: OLS.DANBUR 05:00
PROVIDERS: PCP Family Medicine
DX: E78.5 Hyperlipidemia, unspecified (principal); D72.819 Decreased white blood cell count, unspecified; F03.90 Unspecified dementia, unspecified severity, without behavioral disturbance, psychotic disturbance, mood disturbance, and anxiety
CPT/HCPCS: 36415; 80053; 80061; 82306; 82607; 82746; 84443; 85027

== ENCOUNTER → 2022-11-02 | Outpatient (CLI) | payer MEDICARE, OTHER, SELFPAY ==
--- NOTE | 2022-11-02 14:35 | BI_ITS ---
MAMMOGRAPHY - BILATERAL SCREENING REASON FOR EXAM: Female, 77 years old. Routine annual screening examination. PERTINENT HISTORY: Non-contributory. TECHNIQUE: Digital bilateral breast waqar (3D mammographic acquisition) in the CC and MLO projections. 2-D mediolateral oblique (MLO) and craniocaudad (CC) views of both breasts were obtained. CAD: Full Field Digital Mammography with Computer Added Detection was performed. COMPARISON: Comparison is made with prior study dated 10/31/2021 and 10/11/2020. FINDINGS: Breast Composition: The breasts are extremely dense, which lowers the sensitivity of mammography. There are no dominant masses or suspicious calcifications. No other significant abnormalities are identified. There has been no significant change since the prior study. BI/SCRN MAMM (CAD)W/WAQAR BILAT IMPRESSION: Stable bilateral screening mammogram. Yearly follow-up mammogram recommended. (A) ASSESSMENT CATEGORY: BIRADS Category 1: Negative. A letter regarding these results will be sent to the patient by the facility within 30 days. Approximately 10% of breast cancers are not detected by mammography. A normal mammogram should not delay biopsy of a clinically suspicious abnormality. [id number] Electronically Signed: Teodoro Monique MD at 15:15 EST ,
== END | disposition home or self-care (01) ==
LOC: OPBI 14:33
PROVIDERS: PCP Family Medicine; Visit Provider Family Medicine
DX: Z12.31 Encounter for screening mammogram for malignant neoplasm of breast (principal)
CPT/HCPCS: 77063; 77067

== ENCOUNTER → 2023-02-05 | Outpatient (REF) | payer MEDICARE, OTHER, SELFPAY ==
[2023-02-05 11:59] LABS: Color, Urine Yellow (Yellow); Glucose, Dipstick Normal (Normal); Ketone-Dipstick Negative (Negative); Leukocyte Esterase-Dipstick 25 /ul (Negative); Nitrite-Dipstick Positive (Negative); Occult Blood-Urine Negative /ul (Negative); Protein-Dipstick 15 mg/dl (Negative); Urine Bilirubin Dipstick Negative (Negative); Urine Clarity Sl. Cloudy (Clear); Urine Urobilinogen Normal (Normal)
== END ==
LOC: OLS.DANBUR 02:00
PROVIDERS: PCP Family Medicine; Visit Provider Family Medicine
DX: N39.0 Urinary tract infection, site not specified (principal)
CPT/HCPCS: 81002; 87086; 87088; 87186

== ENCOUNTER → 2023-03-28 | Outpatient (REF) | payer MEDICARE, OTHER, SELFPAY ==
[2023-03-28 08:39] LABS: Cholesterol 144 mg/dL (200); High Density Lipoprotein 51 mg/dL; Triglycerides 44 mg/dL; Very Low Density Lipoprotein 9 mg/dL (5-40)
== END ==
LOC: OLS.DANBUR 05:00
PROVIDERS: PCP Family Medicine
DX: E78.5 Hyperlipidemia, unspecified (principal)
CPT/HCPCS: 36415; 80061

== ENCOUNTER → 2023-04-03 | Outpatient (CLI) | payer MEDICARE, OTHER, SELFPAY ==
[2023-04-03 17:59] LABS: Absolute Lymphocyte Count 0.37 X10^3/uL (0.83-4.51); Basophil# 0.01 X10^3/uL; Basophil% 0.4 % (0-1); Eosinophil# 0.18 X10^3/uL; Eosinophils% 6.5 % (0-5); Hemoglobin 12.3 g/dL (12.0-15.0); Lymphocyte # 0.37 X10^3/ul (0.83-4.51); Lymphocyte % 13.5 % (19-41); Mean Corp Hgb Conc 33.2 g/dL (32-36); Mean Corpuscular Hgb 37.4 pg (27.0-32.0); Mean Corpuscular Volume 112.5 fL (81-99); Mean Platelet Vol. 10.6 fl (6.2-12.0); Monocyte# 0.17 X10^3/uL; Monocyte% 6.2 % (0-10); NRBC Flagged by Analyzer 0 % (0-5); Neutrophil # 2.02 X10^3/uL (2.7-7.7); Neutrophil % 73.4 % (47-70); POSITIVE DIFFERENTIAL YES; Platelet Count 244 K/mm3 (150-450); RBC Distribution Width CV 13.7 % (11.6-14.6); RBC Distribution Width SD 56.5 fl (35.1-43.9); Red Blood Count 3.29 M/mm3 (4.2-5.4); White Blood Count 2.8 K/mm3 (4.4-11.0)
[2023-04-03 18:03] LABS: Differential Indicated SCAN CRITERIA MET
[2023-04-03 18:20] LABS: ALB/GLOB Ratio 1.1 RATIO (0.9-2.4); AST(SGOT) 20 U/L (15-37); Alanine Aminotransfer ALT/SGPT 24 U/L (13-56); Albumin, Serum 3.4 g/dL (3.2-5.0); Alkaline Phosphatase 115 U/L (45-117); Anion Gap 9 (5-15); BUN 30 mg/dL (7-18); BUN/Creat Ratio 33.9 RATIO (10-20); Chloride 105 mmol/L (98-107); Creatinine, Serum 0.89 mg/dL (0.55-1.02); EST Glomerular Filtration Rate 66 mL/min (>60); Est Glom Filt Rate - Afr Amer 80 mL/min (>60); Globulin 3.2 g/dL (2.2-4.2); Glucose 107 mg/dL (74-106); Potassium 4.4 mmol/L (3.5-5.1); Protein, Total 6.6 g/dL (6.4-8.2); Sodium Level 140 mmol/L (136-145); Thyroid Stim Hormone (TSH) 1.58 uIU/mL (0.358-3.74)
[2023-04-03 18:23] LABS: Vitamin B12 584 pg/mL (211-911); Vitamin D,25 Hydroxy 52.3 ng/mL
[2023-04-03 18:37] LABS: Differential Comment SCANNED
== END | disposition home or self-care (01) ==
LOC: MFPLAB 14:34
PROVIDERS: PCP Family Medicine; Visit Provider Family Medicine
DX: F03.90 Unspecified dementia, unspecified severity, without behavioral disturbance, psychotic disturbance, mood disturbance, and anxiety (principal); E78.5 Hyperlipidemia, unspecified; M85.80 Other specified disorders of bone density and structure, unspecified site
CPT/HCPCS: 36415; 80053; 82306; 82607; 84443; 85025

== ENCOUNTER → 2023-04-11 | Outpatient (REF) | payer MEDICARE, OTHER, SELFPAY ==
[2023-04-12 09:04] LABS: Mucous, Urine 0 SEEN /hpf (<or=2+)
[2023-04-12 09:26] LABS: Color, Urine Yellow (Yellow); Glucose, Dipstick Normal (Normal); Ketone-Dipstick Negative (Negative); Leukocyte Esterase-Dipstick 100 /ul (Negative); Nitrite-Dipstick Positive (Negative); Occult Blood-Urine 10 /ul (Negative); Protein-Dipstick 15 mg/dl (Negative); Specific Gravity, Urine 1.025 (1.002-1.030); Urine Bilirubin Dipstick Negative (Negative); Urine Clarity Sl. Cloudy (Clear); Urine Urobilinogen Normal (Normal)
[2023-04-12 09:32] LABS: Bacteria 2+ /hpf (None Seen); Calcium Oxalate Crystals Ur 1+ /hpf (<or=2+); Red Blood Cells-Urine 0-5 SEEN /hpf (0-5); White Blood Cells 10-25 SEEN /hpf (0-5)
[2023-04-12 09:33] LABS: Squamous Epithelial Cells - UA 0-5 SEEN /hpf (5-10); Transitional Epithelial - Ur 0-5 SEEN /hpf (0-5)
== END ==
LOC: OLS.DANBUR 17:00
PROVIDERS: PCP Family Medicine; Visit Provider Family Medicine
DX: N39.0 Urinary tract infection, site not specified (principal)
CPT/HCPCS: 81001; 87077; 87086; 87088; 87186

== ENCOUNTER → 2023-06-25 | Outpatient (REF) | payer MEDICARE, OTHER, SELFPAY ==
[2023-06-26 09:01] LABS: Color, Urine Yellow (Yellow); Glucose, Dipstick Normal (Normal); Ketone-Dipstick Negative (Negative); Leukocyte Esterase-Dipstick 25 /ul (Negative); Nitrite-Dipstick Negative (Negative); Occult Blood-Urine Negative /ul (Negative); Protein-Dipstick Negative (Negative); Urine Bilirubin Dipstick Negative (Negative); Urine Clarity Sl. Cloudy (Clear); Urine Urobilinogen Normal (Normal)
== END ==
LOC: OLS.DANBUR 06:00
PROVIDERS: PCP Family Medicine; Visit Provider Family Medicine
DX: N39.0 Urinary tract infection, site not specified (principal)
CPT/HCPCS: 81002; 87086; 87088

== ENCOUNTER → 2023-09-20 | Outpatient (REF) | payer MEDICARE, OTHER, SELFPAY ==
[2023-09-20 08:41] LABS: Cholesterol 104 mg/dL (200); High Density Lipoprotein 48 mg/dL; Triglycerides 57 mg/dL; Very Low Density Lipoprotein 11 mg/dL (5-40)
== END ==
LOC: OLS.DANBUR 05:00
PROVIDERS: PCP Family Medicine
DX: E78.5 Hyperlipidemia, unspecified (principal)
CPT/HCPCS: 36415; 80061

== ENCOUNTER → 2023-10-07 | Outpatient (CLI) | payer MEDICARE, OTHER, SELFPAY ==
[2023-10-07 17:39] LABS: Hematocrit 32.9 % (37-47); Hemoglobin 10.9 g/dL (12.0-15.0); Mean Corp Hgb Conc 33.1 g/dL (32-36); Mean Corpuscular Hgb 38.1 pg (27.0-32.0); Mean Platelet Vol. 10.1 fl (6.2-12.0); Platelet Count 240 K/mm3 (150-450); RBC Distribution Width CV 13.1 % (11.6-14.6); Red Blood Count 2.86 M/mm3 (4.2-5.4); White Blood Count 1.7 K/mm3 (4.4-11.0)
[2023-10-07 18:34] LABS: ALB/GLOB Ratio 1.1 RATIO (0.9-2.4); AST(SGOT) 13 U/L (15-37); Alanine Aminotransfer ALT/SGPT 22 U/L (13-56); Albumin, Serum 3.4 g/dL (3.2-5.0); Alkaline Phosphatase 104 U/L (45-117); Anion Gap 5 (5-15); BUN 22 mg/dL (7-18); BUN/Creat Ratio 22.4 RATIO (10-20); Calcium,Total 8.9 mg/dL (8.5-10.1); Chloride 108 mmol/L (98-107); Creatinine, Serum 0.98 mg/dL (0.55-1.02); EST Glomerular Filtration Rate 58 mL/min (>60); Est Glom Filt Rate - Afr Amer 71 mL/min (>60); Globulin 3.2 g/dL (2.2-4.2); Glucose 115 mg/dL (74-106); Protein, Total 6.6 g/dL (6.4-8.2); Sodium Level 141 mmol/L (136-145); Thyroid Stim Hormone (TSH) 1.19 uIU/mL (0.358-3.74); Vitamin D,25 Hydroxy 68.2 ng/mL
== END | disposition home or self-care (01) ==
LOC: MFPLAB 14:48
PROVIDERS: PCP Family Medicine; Visit Provider Family Medicine
DX: F03.90 Unspecified dementia, unspecified severity, without behavioral disturbance, psychotic disturbance, mood disturbance, and anxiety (principal); M85.80 Other specified disorders of bone density and structure, unspecified site
CPT/HCPCS: 36415; 80053; 82306; 84443; 85027

== ENCOUNTER → 2023-10-16 | Outpatient (CLI) | payer MEDICARE, OTHER, SELFPAY ==
[2023-10-16 16:02] LABS: Ferritin 35 ng/mL (8-252); Iron 189 ug/dL (50-170)
== END | disposition home or self-care (01) ==
LOC: MFPLAB 13:39
PROVIDERS: PCP Family Medicine; Visit Provider Family Medicine
DX: D64.9 Anemia, unspecified (principal)
CPT/HCPCS: 36415; 82728; 83540

== ENCOUNTER → 2024-04-06 | Outpatient (CLI) | payer MEDICARE, OTHER, SELFPAY ==
[2024-04-06 17:32] LABS: Hematocrit 27.3 % (37-47); Hemoglobin 9.5 g/dL (12.0-15.0); Mean Corp Hgb Conc 34.8 g/dL (32-36); Mean Corpuscular Volume 120.8 fL (81-99); Mean Platelet Vol. 10.4 fl (6.2-12.0); POSITIVE COUNT YES; Platelet Count 194 K/mm3 (150-450); RBC Distribution Width CV 13.9 % (11.6-14.6); RBC Distribution Width SD 62.2 fl (35.1-43.9); Red Blood Count 2.26 M/mm3 (4.2-5.4)
[2024-04-06 17:41] LABS: Scan Indicated on CBC? Y/N YES- FLAGS NOTED; White Blood Count 1.5 K/mm3 (4.4-11.0)
[2024-04-06 17:59] LABS: ALB/GLOB Ratio 0.8 RATIO (0.9-2.4); AST(SGOT) 15 U/L (15-37); Alanine Aminotransfer ALT/SGPT 18 U/L (13-56); Albumin, Serum 3.2 g/dL (3.2-5.0); Alkaline Phosphatase 92 U/L (45-117); Anion Gap 6 (5-15); BUN 24 mg/dL (7-18); BUN/Creat Ratio 27.8 RATIO (10-20); Calcium,Total 9.4 mg/dL (8.5-10.1); Chloride 108 mmol/L (98-107); Creatinine, Serum 0.86 mg/dL (0.55-1.02); EST Glomerular Filtration Rate 68 mL/min (>60); Est Glom Filt Rate - Afr Amer 82 mL/min (>60); Ferritin 78 ng/mL (8-252); Globulin 3.9 g/dL (2.2-4.2); Glucose 134 mg/dL (74-106); Iron 179 ug/dL (50-170); Potassium 3.6 mmol/L (3.5-5.1); Protein, Total 7.1 g/dL (6.4-8.2); Sodium Level 142 mmol/L (136-145)
[2024-04-07 14:55] LABS: Pathologist Review Reviewed
== END | disposition home or self-care (01) ==
LOC: MFPLAB 14:06
PROVIDERS: PCP Family Medicine; Visit Provider Family Medicine
DX: D64.9 Anemia, unspecified (principal); F03.90 Unspecified dementia, unspecified severity, without behavioral disturbance, psychotic disturbance, mood disturbance, and anxiety
CPT/HCPCS: 36415; 80053; 82728; 83540; 85027

== ENCOUNTER 2024-10-11 11:55 | Inpatient (IN) | payer MEDICARE, OTHER, SELFPAY ==
[2024-10-11] VITALS (21 sets, daily range): BP systolic 98–145; BP diastolic 52–96; PULSE 65–81; RESP 14–22; TEMP 35.8–37.1; O2SAT 84–100; BMI 18.9; BMI 17.9
--- NOTE | 2024-10-11 12:40 | CT_ITS ---
STUDY: CT CERVICAL SPINE WITHOUT CONTRAST REASON FOR EXAM: Female, 79 years old. Fall RADIATION DOSAGE (If Supplied By Facility): CTDIvol = ( 15.31 ) mGy, DLP = ( 278.18 ) mGycm TECHNIQUE: High resolution transaxial imaging was performed without contrast material. Sagittal and coronal images were reconstructed. Individualized dose optimization techniques were used for this CT. COMPARISON: None FINDINGS: Normal craniovertebral junction. There are degenerative changes of the anterior atlantoaxial articulation. Normal odontoid process. There is straightening of the normal cervical lordosis. There is grade 1 anterolisthesis at C3-4. There is no acute fracture. Normal vertebral bodies and posterior osseous elements. C2-3: Normal endplates. Normal disc height and morphology. Normal central canal and intervertebral neuroforamina. C3-4: Disc space narrowing. Mild spurring. No canal stenosis. Neural foramina are patent. C4-5: Disc space narrowing. Spurring. No canal stenosis. Mild foraminal narrowing. C5-6: Disc space narrowing. Mild spurring. No canal stenosis. Mild foraminal narrowing. C6-7: Normal endplates. Normal disc height and morphology. Normal central canal and intervertebral neuroforamina. C7-T1: Normal endplates. Normal disc height and morphology. Normal central canal and intervertebral neuroforamina. Normal visualized soft tissue structures. There are atherosclerotic calcifications. CT/Spine Cervical without Contras IMPRESSION: Multilevel degenerative changes, as described above. Electronically Signed: Glenn Iverson MD at 14:22 EST ,
--- NOTE | 2024-10-11 12:40 | EKG12_ITS ---
Test Reason : SYNCOPE Blood Pressure : */* mmHG Vent. Rate : 79 BPM Atrial Rate : 79 BPM P-R Int : 142 ms QRS Dur : 76 ms QT Int : 394 ms P-R-T Axes : 66 25 59 degrees QTcB Int : 451 ms Normal sinus rhythm Nonspecific T wave abnormality Abnormal ECG Confirmed by ELLIE MARCH, ISAURO ([id number]), editor magazine AYDIN NICOLE ([id number]) on 10/12/2024 10:19:46 AM Referred By: Confirmed By: ISAURO ARGUETA MD
--- NOTE | 2024-10-11 12:40 | RAD_ITS ---
STUDY: X-RAY CHEST REASON FOR EXAM: Female, 79 years old. Cough TECHNIQUE: Single AP portable view of the chest. COMPARISON: June 02, 2004 FINDINGS: There are monitoring devices. There is artifact from clothing. The lungs are clear and expanded. There is no demonstrated pleural abnormality. Normal size heart. Normal mediastinum and frank. Normal visualized pulmonary arteries. There is atherosclerotic calcification of the aortic arch. There is demineralization of the osseous structures. Normal visualized ribs, clavicles, and shoulders. There is no demonstrated abnormality of the visualized soft tissue structures of the upper abdomen. RAD/Chest 1 View (Portable) IMPRESSION: No acute cardiopulmonary disease. Electronically Signed: Glenn Iverson MD at 14:26 EST ,
--- NOTE | 2024-10-11 12:40 | CT_ITS ---
STUDY: CT BRAIN WITHOUT CONTRAST REASON FOR EXAM: Female, 79 years old. Head injury RADIATION DOSAGE (If Supplied By Facility): CTDIvol = ( 44.99 ) mGy, DLP = ( 779.24 ) mGycm TECHNIQUE: Transaxial CT imaging of the brain was performed without administration of intravenous contrast material. Individualized dose optimization techniques were used for this CT. COMPARISON: June 08, 2022 FINDINGS: Normal soft tissue structures. Normal calvarium. There is moderate cerebral atrophy with widening of the extra-axial spaces and ventricular dilatation. There are areas of decreased attenuation within the white matter tracts of the supratentorial brain, consistent with microvascular disease changes. There is left parietal volume loss and encephalomalacia. Normal basal ganglia and thalami. Normal brainstem. Normal cerebellum. There is no intracranial hemorrhage. There are no findings of an acute ischemic infarction. Normal visualized paranasal sinuses. CT/Brain/Head without Contrast IMPRESSION: Chronic involutional changes of the brain. Electronically Signed: Glenn Iverson MD at 14:16 EST ,
--- NOTE | 2024-10-11 12:47 | EX.ED.DYSGE1 ---
HPI <ANGEL Cash - Last Filed: 10/11/24 14:36> History of Present Illness Chief Complaint: Fall Narrative Narrative: Patient is a 79-year-old female with history of dementia who is at a memory care unit in [facility]. Patient does ambulate, patient is mostly none talkative and is currently in hospice. patient is also full code, patient was walking today while the was doing chores, he has been her a fall and the patient was unconscious on the floor. Patient did strike the back of her head. Patient is unable to describe what happened, she was brought in by EMS. Per the , she believes that the patient fell striking the back of her head and getting a loss of consciousness. Patient is acting more like herself on arrival. [facility] <ANGEL Cash - Last Filed: 10/11/24 14:36> [facility] Medical History (Updated 10/11/24 @ 14:[address] Twan Rivas, DO) Alzheimer's dementia Osteoporosis High cholesterol Cataracts, bilateral Arthritis Home Medications ?Medication ?Instructions ?Recorded ?Last Taken ?Type atorvastatin 20 mg tablet 20 mg PO QHS 05/29/22 Unknown History escitalopram oxalate 20 mg tablet 20 mg PO DAILY 05/29/22 Unknown History (Lexapro) acetaminophen 325 mg capsule 650 mg PO Q4H PRN fever or pain 10/11/24 Unknown History aspirin 81 mg tablet,delayed 81 mg PO DAILY HEART HEALTH 10/11/24 10/11/24 History release (Adult Low Dose Aspirin) bisacodyl 10 mg rectal suppository 10 mg CA DAILY PRN constipation 10/11/24 Unknown History doxycycline hyclate 100 mg capsule 100 mg PO BID SKIN INFECTION 10/11/24 10/11/24 History famotidine 20 mg tablet 20 mg PO DAILY GERD 10/11/24 10/11/24 History fluticasone propionate 50 2 spray intranasal DAILY PRN 10/11/24 Unknown History mcg/actuation nasal allergy symptoms spray,suspension (24 Hour Allergy Relief) loperamide 2 mg tablet (Diamode) 2 mg PO Q4H PRN loose stool 10/11/24 Unknown History lorazepam 0.5 mg tablet (Ativan) 0.5 mg PO Q4H PRN anxiety 10/11/24 Unknown History magnesium hydroxide 400 mg/5 mL 30 ml PO DAILY PRN constipation 10/11/24 Unknown History oral suspension (Gentle Laxative (magnesium hydroxide)) melatonin 3 mg tablet 3 mg PO QHS SLEEP 10/11/24 10/10/24 History morphine concentrate 20 mg/mL oral 5 mg sublingual Q4H PRN pain 10/11/24 Unknown History syringe (FOR ORAL USE ONLY) multivitamin (Daily Multi-Vitamin 1 tab PO DAILY SUPPLEMENT 10/11/24 10/11/24 History tablet) risperidone 0.25 mg tablet 0.25 mg PO BID BEHAVIORS 10/11/24 10/11/24 History sildenafil (pulm.hypertension) 20 20 mg PO DAILY HEALT MAINT. 10/11/24 10/11/24 History mg tablet Allergy/AdvReac Type Severity Reaction Status Date / Time danazol AdvReac Intermediate Rash Verified 10/11/24 12:12 metoclopramide (From Reglan) AdvReac Intermediate Other Verified 10/11/24 12:12 Family History Father CVA (cerebral vascular accident) Surgical History History of hysterectomy Social History Smoking Status: Never smoker second hand exposure: No alcohol intake: never substance use type: does not use what type of physical activity do you participate in: none akshat/mu-ism: Buddhist seatbelt use: always ROS <ANGEL Cash - Last Filed: 10/11/24 14:36> ROS ED ROS Narrative Secondary to the patient's dementia, review of symptoms cannot be secondary to patient dementia, review of symptoms cannot be completed EXAM <ANGEL Cash - Last Filed: 10/11/24 14:36> Physical Exam Narrative Exam Narrative: Vital signs reviewed. Patient is moving all extremities. Sitting up. Patient does not speak however per the family this is normal. HEET: Head normocephalic atraumatic, TMs clear bilaterally. Posterior pharynx is clear, moist mucous membranes. Nares clear bilaterally. Pupils are equal round reactive light, negative for any hematoma or septal hematoma. I do not feel any hematoma there is no signs of trauma. Neck: Supple with no lymphadenopathy or tenderness. No signs of meningismus. Cardiac: Regular rate and rhythm no murmurs gallops or rubs, equal peripheral pulses bilaterally. Respiratory: Lungs clear to auscultation bilaterally. No chest tenderness. Abdomen: Soft, nontender, nondistended. No abdominal bruit or pulsatile masses. No hepatosplenomegaly Extremities: No peripheral edema, no signs of gross trauma or deformity. Active full range of motion of all extremities. Neuro: Cranial nerves II through XII intact, no focal neurological deficits. Skin: Clean dry and intact with no rash, purpura, petechiae, vesicles or pustules. Backs/flank: No CVA tenderness, no midline spinal tenderness, no deformity. Psych: Normal mood and affect. No SI, HI or acute psychosis. Const Vital Signs: 10/11/24 11:56 10/11/24 12:09 10/11/24 13:56 Temperature 98.7 F Temperature Source Temporal Pulse Rate 78 81 Respiratory Rate 20 H 22 H Respiratory Effort Normal Non-Labored Respiratory Depth Normal Respiratory Pattern Normal Blood Pressure 119/59 L 110/82 H Blood Pressure Mean 79 91 Pulse Ox 98 95 Oxygen Delivery Method Room Air Room Air Nasal Cannula Oxygen Flow Rate (L/min) 2 10/11/24 14:44 Temperature 98 F Temperature Source Pulse Rate 81 Respiratory Rate 22 H Respiratory Effort Respiratory Depth Respiratory Pattern Blood Pressure 110/82 H Blood Pressure Mean 91 Pulse Ox 95 Oxygen Delivery Method Oxygen Flow Rate (L/min) <Dr. Twan Rivas DO - Last Filed: 10/11/24 15:55> Physical Exam Const Vital Signs: 10/11/24 11:56 10/11/24 12:09 10/11/24 13:56 Temperature 98.7 F Temperature Source Temporal Pulse Rate 78 81 Respiratory Rate 20 H 22 H Respiratory Effort Normal Non-Labored Respiratory Depth Normal Respiratory Pattern Normal Blood Pressure 119/59 L 110/82 H Blood Pressure Mean 79 91 Pulse Ox 98 95 Oxygen Delivery Method Room Air Room Air Nasal Cannula Oxygen Flow Rate (L/min) 2 10/11/24 14:44 Temperature 98 F Temperature Source Pulse Rate 81 Respiratory Rate 22 H Respiratory Effort Respiratory Depth Respiratory Pattern Blood Pressure 110/82 H Blood Pressure Mean 91 Pulse Ox 95 Oxygen Delivery Method Oxygen Flow Rate (L/min) [facility] <ANGEL Cash - Last Filed: 10/11/24 14:36> [facility] Lab Data Labs: Laboratory Results - last 24 hr 11/10/24 11/10/24 11/10/24 12:10 12:10 13:05 WBC Cancelled Corrected WBC Cancelled RBC Cancelled Hgb Cancelled Hct Cancelled MCV Cancelled MCH Cancelled MCHC Cancelled RDW Std Deviation Cancelled RDW Coeff of Jonatan Cancelled Plt Count Cancelled MPV Cancelled Immature Gran % (Auto) Cancelled Neut % (Auto) Cancelled Lymph % (Auto) Cancelled Shelby % (Auto) Cancelled Eos % (Auto) Cancelled Baso % (Auto) Cancelled Absolute Neuts (auto) Cancelled Absolute Lymphs (auto) Cancelled Total Counted Cancelled Neutrophils % (Manual) Cancelled Band Neutrophils % Cancelled Lymphocytes % (Manual) Cancelled Monocytes % (Manual) Cancelled Eosinophils % (Manual) Cancelled Basophils % (Manual) Cancelled Metamyelocytes % Cancelled Myelocytes % Cancelled Promyelocytes % Cancelled Blast Cells % Cancelled Plasma Cell % (Manual) Cancelled Other Cells % Cancelled Nucleated RBC % Cancelled Nucleated RBCs/100 WBC Cancelled Differential Comment Cancelled Diff Path Review Cancelled Hypersegmented Neuts Cancelled Atypical Lymphocytes Cancelled Reactive Lymphocytes Cancelled Smudge Cells Cancelled Toxic Granulation Cancelled Toxic Vacuolation Cancelled Dohle Bodies Cancelled Casi Rods Cancelled Platelet Estimate Cancelled Plt Morphology Comment Cancelled RBC Morphology Cancelled Cancelled Polychromasia Cancelled Hypochromasia Cancelled Basophilic Stippling Cancelled Anisocytosis Cancelled Microcytosis Cancelled Macrocytosis Cancelled Spherocytes Cancelled Sickle Cells Cancelled Target Cells Cancelled Tear Drop Cells Cancelled Ovalocytes Cancelled Stomatocytes Cancelled [place] Bodies Cancelled Darian Cells Cancelled Bite Cells Cancelled Crenated Cell Cancelled Acanthocytes (Spur) Cancelled Rouleaux Cancelled Schistocytes Cancelled Sodium 145 Potassium 3.9 Chloride 115 H Carbon Dioxide 26.0 Anion Gap 4 L BUN 36 H Creatinine 0.90 Estim Creat Clear Calc 40.74 Est GFR (MDRD) Af Amer 78 Est GFR (MDRD) Non-Af 64 BUN/Creatinine Ratio 39.9 H Glucose 95 Calcium 8.7 Troponin I High Sens 11 Urine Color Yellow Urine Clarity Clear Urine pH 6.0 Ur Specific Aiken 1.020 Urine Protein 15 H Urine Glucose (UA) Normal Urine Ketones Negative Urine Occult Blood Negative Urine Nitrite Negative Urine Bilirubin Negative Urine Urobilinogen Normal Ur Leukocyte Esterase Negative Urine RBC 0 SEEN Urine WBC 0 SEEN Ur Squamous Epith Cells 0 SEEN Urine Bacteria 0 SEEN Urine Mucus 0 SEEN Blood Type Antibody Screen Crossmatch 10/11/24 10/11/24 13:20 13:52 WBC 0.6 L* Corrected WBC RBC 0.87 L Hgb 3.8 L* Hct 11.5 L MCV 132.2 H MCH 43.7 H MCHC 33.0 RDW Std Deviation 72.9 H RDW Coeff of Jonatan 14.9 H Plt Count 89 L MPV 11.0 Immature Gran % (Auto) 0.000 Neut % (Auto) 35.9 L Lymph % (Auto) 60.9 H Shelby % (Auto) 1.6 Eos % (Auto) 1.6 Baso % (Auto) 0.0 Absolute Neuts (auto) 0.2 L Absolute Lymphs (auto) 0.39 L Total Counted Neutrophils % (Manual) Band Neutrophils % Lymphocytes % (Manual) Monocytes % (Manual) Eosinophils % (Manual) Basophils % (Manual) Metamyelocytes % Myelocytes % Promyelocytes % Blast Cells % Plasma Cell % (Manual) Other Cells % Nucleated RBC % 0 Nucleated RBCs/100 WBC Differential Comment SCANNED Diff Path Review May foll Hypersegmented Neuts Atypical Lymphocytes Reactive Lymphocytes Smudge Cells Toxic Granulation 3+ Toxic Vacuolation Dohle Bodies Casi Rods Platelet Estimate MOD DEC Plt Morphology Comment RBC Morphology Polychromasia Hypochromasia Basophilic Stippling Anisocytosis 2+ Microcytosis Macrocytosis Spherocytes Sickle Cells Target Cells Tear Drop Cells Ovalocytes Stomatocytes [place] Bodies Darian Cells Bite Cells Crenated Cell Acanthocytes (Spur) Rouleaux Schistocytes Sodium Potassium Chloride Carbon Dioxide Anion Gap BUN Creatinine Estim Creat Clear Calc Est GFR (MDRD) Af Amer Est GFR (MDRD) Non-Af BUN/Creatinine Ratio Glucose Calcium Troponin I High Sens Urine Color Urine Clarity Urine pH Ur Specific Aiken Urine Protein Urine Glucose (UA) Urine Ketones Urine Occult Blood Urine Nitrite Urine Bilirubin Urine Urobilinogen Ur Leukocyte Esterase Urine RBC Urine WBC Ur Squamous Epith Cells Urine Bacteria Urine Mucus Blood Type O POSITIVE Antibody Screen NEGATIVE Crossmatch See Detail Radiography Diagnostic Testing: Clinical Impression(s) from Imaging Studies Brain CT 10/11/24 12:40 IMPRESSION: Chronic involutional changes of the brain. Electronically Signed: Glenn Iverson MD at 14:16 EST , Cervical Spine CT 10/11/24 12:40 IMPRESSION: Multilevel degenerative changes, as described above. Electronically Signed: Glenn Iverson MD at 14:22 EST , Chest X-Ray 10/11/24 12:40 IMPRESSION: No acute cardiopulmonary disease. Electronically Signed: Glenn Iverson MD at 14:26 EST , EKG EKG shows a normal sinus rhythm, rate of 79 bpm: Attestation: I personally reviewed and interpreted this EKG as follows: Interpretation: Sinus Rhythm Comments: Normal sinus rhythm, rate of 79 bpm, CA interval 142 ms, QRS duration 76 ms, no acute ST elevation, no acute infarct noted. Treatment and Re-Evaluation :: Differential diagnosis includes however is not limited to: Concussion, skull fracture, intracranial bleeding, electrode abnormality, ACS, OR Patient is nonverbal, not answering questions however per the patient's family she has dementia and does not speak regularly. The patient is a full code according to the . Patient will receive a CT scan of brain and cervical spine, chest x-ray. All radiologic examinations were read, reviewed by the emergency department attending. From these reads, a plan of care will be put in place. Patient will also receive basic laboratory values, as well as urinalysis. Patient will be reevaluated. Patient CT scan of the brain cervical spine were unremarkable. Patient's chest x-ray was negative for any acute process. Urinalysis negative for any infection. Patient's laboratory values did have some significant abnormal findings. Patient's chemistries were unremarkable, CBC did show pancytopenia with a white blood cell count of 0.6, this seems to be consistent, patient's hemoglobin is 3.8 which is significantly low, in April of this last year, it was 9.5. Patient was rectal eyes, there is no signs or symptoms of dark tarry stool, no bleeding. Patient will be typed and crossed, given 3 units packed red blood cells. I will reach out to the hospitalist, patient stable for admission. Patient's stool occult was negative. Spoke with Dr. Sanford, patient be admitted to PCU for. Patient stable <Dr. Twan Rivas, DO - Last Filed: 10/11/24 15:55> MDM History & Record Review Discussion w/independent historian: EMS personnel, Family and Other (SNF Records) Lab Data Attestation: I reviewed the patient's lab results. Labs: Laboratory Results - last 24 hr 10/11/24 10/11/24 10/11/24 12:10 12:10 13:05 WBC Cancelled Corrected WBC Cancelled RBC Cancelled Hgb Cancelled Hct Cancelled MCV Cancelled MCH Cancelled MCHC Cancelled RDW Std Deviation Cancelled RDW Coeff of Jonatan Cancelled Plt Count Cancelled MPV Cancelled Immature Gran % (Auto) Cancelled Neut % (Auto) Cancelled Lymph % (Auto) Cancelled Shelby % (Auto) Cancelled Eos % (Auto) Cancelled Baso % (Auto) Cancelled Absolute Neuts (auto) Cancelled Absolute Lymphs (auto) Cancelled Total Counted Cancelled Neutrophils % (Manual) Cancelled Band Neutrophils % Cancelled Lymphocytes % (Manual) Cancelled Monocytes % (Manual) Cancelled Eosinophils % (Manual) Cancelled Basophils % (Manual) Cancelled Metamyelocytes % Cancelled Myelocytes % Cancelled Promyelocytes % Cancelled Blast Cells % Cancelled Plasma Cell % (Manual) Cancelled Other Cells % Cancelled Nucleated RBC % Cancelled Nucleated RBCs/100 WBC Cancelled Differential Comment Cancelled Diff Path Review Cancelled Hypersegmented Neuts Cancelled Atypical Lymphocytes Cancelled Reactive Lymphocytes Cancelled Smudge Cells Cancelled Toxic Granulation Cancelled Toxic Vacuolation Cancelled Dohle Bodies Cancelled Casi Rods Cancelled Platelet Estimate Cancelled Plt Morphology Comment Cancelled RBC Morphology Cancelled Cancelled Polychromasia Cancelled Hypochromasia Cancelled Basophilic Stippling Cancelled Anisocytosis Cancelled Microcytosis Cancelled Macrocytosis Cancelled Spherocytes Cancelled Sickle Cells Cancelled Target Cells Cancelled Tear Drop Cells Cancelled Ovalocytes Cancelled Stomatocytes Cancelled [place] Bodies Cancelled [place] Cells Cancelled Bite Cells Cancelled Crenated Cell Cancelled Acanthocytes (Spur) Cancelled Rouleaux Cancelled Schistocytes Cancelled Sodium 145 Potassium 3.9 Chloride 115 H Carbon Dioxide 26.0 Anion Gap 4 L BUN 36 H Creatinine 0.90 Estim Creat Clear Calc 40.74 Est GFR (MDRD) Af Amer 78 Est GFR (MDRD) Non-Af 64 BUN/Creatinine Ratio 39.9 H Glucose 95 Calcium 8.7 Troponin I High Sens 11 Urine Color Yellow Urine Clarity Clear Urine pH 6.0 Ur Specific Aiken 1.020 Urine Protein 15 H Urine Glucose (UA) Normal Urine Ketones Negative Urine Occult Blood Negative Urine Nitrite Negative Urine Bilirubin Negative Urine Urobilinogen Normal Ur Leukocyte Esterase Negative Urine RBC 0 SEEN Urine WBC 0 SEEN Ur Squamous Epith Cells 0 SEEN Urine Bacteria 0 SEEN Urine Mucus 0 SEEN Blood Type Antibody Screen Crossmatch 10/11/24 10/11/24 13:20 13:52 WBC 0.6 L* Corrected WBC RBC 0.87 L Hgb 3.8 L* Hct 11.5 L MCV 132.2 H MCH 43.7 H MCHC 33.0 RDW Std Deviation 72.9 H RDW Coeff of Jonatan 14.9 H Plt Count 89 L MPV 11.0 Immature Gran % (Auto) 0.000 Neut % (Auto) 35.9 L Lymph % (Auto) 60.9 H Shelby % (Auto) 1.6 Eos % (Auto) 1.6 Baso % (Auto) 0.0 Absolute Neuts (auto) 0.2 L Absolute Lymphs (auto) 0.39 L Total Counted Neutrophils % (Manual) Band Neutrophils % Lymphocytes % (Manual) Monocytes % (Manual) Eosinophils % (Manual) Basophils % (Manual) Metamyelocytes % Myelocytes % Promyelocytes % Blast Cells % Plasma Cell % (Manual) Other Cells % Nucleated RBC % 0 Nucleated RBCs/100 WBC Differential Comment SCANNED Diff Path Review May foll Hypersegmented Neuts Atypical Lymphocytes Reactive Lymphocytes Smudge Cells Toxic Granulation 3+ Toxic Vacuolation Dohle Bodies Casi Rods Platelet Estimate MOD DEC Plt Morphology Comment RBC Morphology Polychromasia Hypochromasia Basophilic Stippling Anisocytosis 2+ Microcytosis Macrocytosis Spherocytes Sickle Cells Target Cells Tear Drop Cells Ovalocytes Stomatocytes [place] Bodies [place] Cells Bite Cells Crenated Cell Acanthocytes (Spur) Rouleaux Schistocytes Sodium Potassium Chloride Carbon Dioxide Anion Gap BUN Creatinine Estim Creat Clear Calc Est GFR (MDRD) Af Amer Est GFR (MDRD) Non-Af BUN/Creatinine Ratio Glucose Calcium Troponin I High Sens Urine Color Urine Clarity Urine pH Ur Specific Aiken Urine Protein Urine Glucose (UA) Urine Ketones Urine Occult Blood Urine Nitrite Urine Bilirubin Urine Urobilinogen Ur Leukocyte Esterase Urine RBC Urine WBC Ur Squamous Epith Cells Urine Bacteria Urine Mucus Blood Type O POSITIVE Antibody Screen NEGATIVE Crossmatch See Detail Radiography Diagnostic Testing: Clinical Impression(s) from Imaging Studies Brain CT 10/11/24 12:40 IMPRESSION: Chronic involutional changes of the brain. Electronically Signed: Glenn Iverson MD at 14:16 EST , Cervical Spine CT 10/11/24 12:40 IMPRESSION: Multilevel degenerative changes, as described above. Electronically Signed: Glenn Iverson MD at 14:22 EST , Chest X-Ray 10/11/24 12:40 IMPRESSION: No acute cardiopulmonary disease. Electronically Signed: Glenn Iverson MD at 14:26 EST , Management Discussion w/another healthcare provider: Hospitalist Treatment and Re-Evaluation :: Differential diagnosis includes however is not limited to: Concussion, skull fracture, intracranial bleeding, electrode abnormality, ACS, OR Patient is nonverbal, not answering questions however per the patient's family she has dementia and does not speak regularly. The patient is a full code according to the . Patient will receive a CT scan of brain and cervical spine, chest x-ray. All radiologic examinations were read, reviewed by the emergency department attending. From these reads, a plan of care will be put in place. Patient will also receive basic laboratory values, as well as urinalysis. Patient will be reevaluated. Patient CT scan of the brain cervical spine were unremarkable. Patient's chest x-ray was negative for any acute process. Urinalysis negative for any infection. Patient's laboratory values did have some significant abnormal findings. Patient's chemistries were unremarkable, CBC did show pancytopenia with a white blood cell count of 0.6, this seems to be consistent, patient's hemoglobin is 3.8 which is significantly low, in April of this last year, it was 9.5. Patient was rectal eyes, there is no signs or symptoms of dark tarry stool, no bleeding. Patient will be typed and crossed, given 3 units packed red blood cells. I will reach out to the hospitalist, patient stable for admission. Patient's stool occult was negative. I have personally performed a face to face assessment of the patient and have reviewed the ABRIL Note. I performed a substantive portion of the visit including all aspects of the following. My mendoza findings include: History is 79-year-old female presenting to the emergency room for a fall. states that he was visiting her at the [facility] and she suddenly disappeared and had fallen. At baseline she has dementia, essentially is nonverbal. He states though that she can understand when you talk with her what you are saying. Reportedly is also in hospice because just to have another eyes on her but that she is a full code including CPR and open heart surgery if need be. He states that her color does not appear any significantly different than normal but it was slightly paler at the time of the fall. Exam is afebrile vital signs appear stable. Patient is alert but nonverbal. Family is helping her lay back in the bed repeatedly. She appears very pale pale conjunctiva palmar parlor. Moving all extremities. No overt signs of head trauma. Medical Decison Making patient is profoundly pancytopenic. Hemoccult is negative. Head CT cervical spine CT negative for acute. BUN of 36 creatinine 0.90 urinalysis negative. My independent interpretation of the chest x-ray is no acute process. wishes her to be a full code. She was typed and crossed for 3 units. Plan will be admission for further care Discharge Plan Dx/Rx/DC Orders Clinical Impression: Dementia, Fall, Brief loss of consciousness, Concussion, Pancytopenia, Anemia requiring transfusions Disposition Disposition: Acute Care Hospital [facility] Discharge Date/Time: 10/11/24 15:34
[2024-10-11 13:08] LABS: Anion Gap 4 (5-15); BUN 36 mg/dL (7-18); BUN/Creat Ratio 39.9 RATIO (10-20); Calcium,Total 8.7 mg/dL (8.5-10.1); Chloride 115 mmol/L (98-107); EST Glomerular Filtration Rate 64 mL/min (>60); Est Glom Filt Rate - Afr Amer 78 mL/min (>60); Estimated Creatinine Clearance 40.74 ml/min; Glucose 95 mg/dL (74-106); Potassium 3.9 mmol/L (3.5-5.1); Sodium Level 145 mmol/L (136-145); Troponin-I HS 11 pg/mL (3.0-54.0)
[2024-10-11 13:09] LABS: Bacteria 0 SEEN /hpf (None Seen); Mucous, Urine 0 SEEN /hpf (<or=2+); Red Blood Cells-Urine 0 SEEN /hpf (0-5); Squamous Epithelial Cells - UA 0 SEEN /hpf (5-10); White Blood Cells 0 SEEN /hpf (0-5)
[2024-10-11 13:30] LABS: Color, Urine Yellow (Yellow); Glucose, Dipstick Normal (Normal); Ketone-Dipstick Negative (Negative); Leukocyte Esterase-Dipstick Negative /ul (Negative); Nitrite-Dipstick Negative (Negative); Occult Blood-Urine Negative /ul (Negative); Protein-Dipstick 15 mg/dl (Negative); Urine Bilirubin Dipstick Negative (Negative); Urine Clarity Clear (Clear); Urine Urobilinogen Normal (Normal)
[2024-10-11 13:30] LABS: Absolute Lymphocyte Count 0.39 X10^3/uL (0.83-4.51); Absolute Neutrophil Count 0.2 X10^3/uL (2.0-7.7); Eosinophil# 0.01 X10^3/uL; Eosinophils% 1.6 % (0-5); Hematocrit 11.5 % (37-47); Lymphocyte # 0.39 X10^3/ul (0.83-4.51); Lymphocyte % 60.9 % (19-41); Mean Corpuscular Hgb 43.7 pg (27.0-32.0); Mean Corpuscular Volume 132.2 fL (81-99); Monocyte# 0.01 X10^3/uL; Monocyte% 1.6 % (0-10); NRBC Flagged by Analyzer 0 % (0-5); Neutrophil # 0.23 X10^3/uL (2.7-7.7); Neutrophil % 35.9 % (47-70); POSITIVE COUNT YES; POSITIVE DIFFERENTIAL YES; POSITIVE MORPHOLOGY YES; Platelet Count 89 K/mm3 (150-450); RBC Distribution Width CV 14.9 % (11.6-14.6); RBC Distribution Width SD 72.9 fl (35.1-43.9); Red Blood Count 0.87 M/mm3 (4.2-5.4)
[2024-10-11 13:39] LABS: Differential Indicated SCAN CRITERIA MET; Hemoglobin 3.8 g/dL (12.0-15.0); White Blood Count 0.6 K/mm3 (4.4-11.0)
[2024-10-11 14:11] LABS: Anisocytosis 2+; Differential Comment SCANNED; Toxic Granulation 3+
[2024-10-11 14:14] LABS: Platelet Estimate MOD DEC (ADEQ)
--- NOTE | 2024-10-11 14:34 | PCM.HP.STD ---
HPI - General General Date of Admission: 10/11/24 Date of Service: 10/11/24 Chief Complaint: Fall HPI Narrative ILANA RAMÍREZ, is a 79 with past medical history of pancytopenia, dementia, Alzheimer's disease, EDUARDO on CPAP presents to the ED following a fall. She presently stays in the memory care unit at [facility], but the [bedside] she was walking down the called out this morning and suddenly tripped over and fell on her head. He saw her yesterday and there are no new changes in her sensorium. She is minimally responsive at baseline, understands what he was saying to her but does not reciprocate back most of the time. He has not noticed any active bleeding, no blood in stool, no fever, no cough or shortness of breath For her dementia, first noted on 2012, previously she was on memantine and donepezil but was minimally responsive to the medications and they were discontinued 2021. She takes escitalopram for this depression and anxiety. At the time of evaluation WBC 0.6, hemoglobin 3.8, platelet count of 89, sodium of 145, potassium 3.9, BUN 36, creatinine 0.9, urine protein of 15, urinalysis negative for any infection. Chest CT chest x-ray showed no acute cardiopulmonary disease, CT cervical spine without contrast showed multilevel degenerative changes,, CT head showed no acute changes [facility] Medical History (Updated 10/11/24 @ 14:[address] Twan Rivas, DO) Alzheimer's dementia Osteoporosis High cholesterol Cataracts, bilateral Arthritis Home Medications ?Medication ?Instructions ?Recorded ?Last Taken ?Type atorvastatin 20 mg tablet 20 mg PO QHS 05/29/22 Unknown History escitalopram oxalate 20 mg tablet 20 mg PO DAILY 05/29/22 Unknown History (Lexapro) acetaminophen 325 mg capsule 650 mg PO Q4H PRN fever or pain 10/11/24 Unknown History aspirin 81 mg tablet,delayed 81 mg PO DAILY 10/11/24 Unknown History release (Adult Low Dose Aspirin) bisacodyl 10 mg rectal suppository 10 mg AK DAILY PRN constipation 10/11/24 Unknown History doxycycline hyclate 100 mg capsule 100 mg PO BID SKIN INFECTION 10/11/24 Unknown History famotidine 20 mg tablet 20 mg PO DAILY 10/11/24 Unknown History fluticasone propionate 50 2 spray intranasal DAILY PRN 10/11/24 Unknown History mcg/actuation nasal allergy symptoms spray,suspension (24 Hour Allergy Relief) loperamide 2 mg tablet (Diamode) 2 mg PO Q4H PRN loose stool 10/11/24 Unknown History lorazepam 0.5 mg tablet (Ativan) 0.5 mg PO Q4H PRN anxiety 10/11/24 Unknown History magnesium hydroxide 400 mg/5 mL 30 ml PO DAILY PRN constipation 10/11/24 Unknown History oral suspension (Gentle Laxative (magnesium hydroxide)) melatonin 3 mg tablet 3 mg PO QHS 10/11/24 Unknown History morphine concentrate 20 mg/mL oral 5 mg sublingual Q4H PRN pain 10/11/24 Unknown History syringe (FOR ORAL USE ONLY) multivitamin (Daily Multi-Vitamin 1 tab PO DAILY 10/11/24 Unknown History tablet) risperidone 0.25 mg tablet 0.25 mg PO BID 10/11/24 Unknown History sildenafil (pulm.hypertension) 20 20 mg PO DAILY 10/11/24 Unknown History mg tablet Allergy/AdvReac Type Severity Reaction Status Date / Time danazol AdvReac Intermediate Rash Verified 10/11/24 12:12 metoclopramide (From Reglan) AdvReac Intermediate Other Verified 10/11/24 12:12 Family History Father CVA (cerebral vascular accident) Surgical History History of hysterectomy Social History Smoking Status: Never smoker second hand exposure: No alcohol intake: never substance use type: does not use what type of physical activity do you participate in: none akshat/jehovah's witness: Buddhist seatbelt use: always ROS Review of Systems ROS Unobtainable: due to mental condition Vital Signs Vital Signs Vital Signs: 10/11/24 11:56 10/11/24 12:09 10/11/24 13:56 Temperature 98.7 F Temperature Source Temporal Pulse Rate 78 81 Respiratory Rate 20 H 22 H Respiratory Effort Normal Non-Labored Respiratory Depth Normal Respiratory Pattern Normal Blood Pressure 119/59 L 110/82 H Blood Pressure Mean 79 91 Pulse Ox 98 95 Oxygen Delivery Method Room Air Room Air Nasal Cannula Oxygen Flow Rate (L/min) 2 Weight Weight: 110 lb 7.225 oz Body Mass Index (BMI) 18.9 Physical Exam Const Constitutional Narrative: Alert oriented x 0 HEENT normocephalic and head/scalp atraumatic Neck no lymphadenopathy Resp normal respiratory effort, no retractions and no use of accessory muscles Cardio regular rate and regular rhythm Extremity normal to inspection Extremity Narrative: No pedal edema Results Medical Records Data Attestation: I reviewed the patient's medical records Lab / Micro Data Attestation: I reviewed the patient's lab results. 10/11/24 13:20 10/11/24 12:10 Labs: Laboratory Results - last 24 hr 10/11/24 12:10: WBC Cancelled, Corrected WBC Cancelled, RBC Cancelled, Hgb Cancelled, Hct Cancelled, MCV Cancelled, MCH Cancelled, MCHC Cancelled, RDW Std Deviation Cancelled, RDW Coeff of Jonatan Cancelled, Plt Count Cancelled, MPV Cancelled, Immature Gran % (Auto) Cancelled, Neut % (Auto) Cancelled, Lymph % (Auto) Cancelled, [place] % (Auto) Cancelled, Eos % (Auto) Cancelled, Baso % (Auto) Cancelled, Absolute Neuts (auto) Cancelled, Absolute Lymphs (auto) Cancelled, Total Counted Cancelled, Neutrophils % (Manual) Cancelled, Band Neutrophils % Cancelled, Lymphocytes % (Manual) Cancelled, Monocytes % (Manual) Cancelled, Eosinophils % (Manual) Cancelled, Basophils % (Manual) Cancelled, Metamyelocytes % Cancelled, Myelocytes % Cancelled, Promyelocytes % Cancelled, Blast Cells % Cancelled, Plasma Cell % (Manual) Cancelled, Other Cells % Cancelled, Nucleated RBC % Cancelled, Nucleated RBCs/100 WBC Cancelled, Differential Comment Cancelled, Diff Path Review Cancelled, Hypersegmented Neuts Cancelled, Atypical Lymphocytes Cancelled, Reactive Lymphocytes Cancelled, Smudge Cells Cancelled, Toxic Granulation Cancelled, Toxic Vacuolation Cancelled, Dohle Bodies Cancelled, Casi Rods Cancelled, Platelet Estimate Cancelled, Plt Morphology Comment Cancelled, RBC Morphology Cancelled 10/11/24 12:10: RBC Morphology Cancelled, Polychromasia Cancelled, Hypochromasia Cancelled, Basophilic Stippling Cancelled, Anisocytosis Cancelled, Microcytosis Cancelled, Macrocytosis Cancelled, Spherocytes Cancelled, Sickle Cells Cancelled, Target Cells Cancelled, Tear Drop Cells Cancelled, Ovalocytes Cancelled, Stomatocytes Cancelled, [place] Bodies Cancelled, Darian Cells Cancelled, Bite Cells Cancelled, Crenated Cell Cancelled, Acanthocytes (Spur) Cancelled, Rouleaux Cancelled, Schistocytes Cancelled, Sodium 145, Potassium 3.9, Chloride 115 H, Carbon Dioxide 26.0, Anion Gap 4 L, BUN 36 H, Creatinine 0.90, Estim Creat Clear Calc 40.74, Est GFR (MDRD) Af Amer 78, Est GFR (MDRD) Non-Af 64, BUN/Creatinine Ratio 39.9 H, Glucose 95, Calcium 8.7, Troponin I High Sens 11 10/11/24 13:05: Urine Color Yellow, Urine Clarity Clear, Urine pH 6.0, Ur Specific [place] 1.020, Urine Protein 15 H, Urine Glucose (UA) Normal, Urine Ketones Negative, Urine Occult Blood Negative, Urine Nitrite Negative, Urine Bilirubin Negative, Urine Urobilinogen Normal, Ur Leukocyte Esterase Negative, Urine RBC 0 SEEN, Urine WBC 0 SEEN, Ur Squamous Epith Cells 0 SEEN, Urine Bacteria 0 SEEN, Urine Mucus 0 SEEN 10/11/24 13:20: WBC 0.6 L*, RBC 0.87 L, Hgb 3.8 L*, Hct 11.5 L, MCV 132.2 H, MCH 43.7 H, MCHC 33.0, RDW Std Deviation 72.9 H, RDW Coeff of Jonatan 14.9 H, Plt Count 89 L, MPV 11.0, Immature Gran % (Auto) 0.000, Neut % (Auto) 35.9 L, Lymph % (Auto) 60.9 H, Mellette % (Auto) 1.6, Eos % (Auto) 1.6, Baso % (Auto) 0.0, Absolute Neuts (auto) 0.2 L, Absolute Lymphs (auto) 0.39 L, Nucleated RBC % 0, Differential Comment SCANNED, Diff Path Review May foll, Toxic Granulation 3+, Platelet Estimate MOD DEC, Anisocytosis 2+ 10/11/24 13:52: Crossmatch See Detail Micro: Microbiology 10/11/24 13:50 Stool Stool Occult Blood (INDIRA) - Final Imaging Radiology Impression Brain CT 10/11/24 12:40 IMPRESSION: Chronic involutional changes of the brain. Electronically Signed: Glenn Iverson MD at 14:16 EST , Cervical Spine CT 10/11/24 12:40 IMPRESSION: Multilevel degenerative changes, as described above. Electronically Signed: Glenn Iverson MD at 14:22 EST , Chest X-Ray 10/11/24 12:40 IMPRESSION: No acute cardiopulmonary disease. Electronically Signed: Glenn Iverson MD at 14:26 EST , Assessment & Plan Assessment/Plan (1) Pancytopenia: PLAN: Plan 79-year-old female presents to the ED with concerns regarding fall. The likely reason for her fall is significant anemia. She has severe progressive Alzheimer's dementia and is presently in a memory care unit, the reason for her pancytopenia is not completely known. There are no new medications that were recently started. 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 -Is having leukopenia since 2020 that has progressively worsened -No features of fever at this time, will follow neutropenia precautions -There is associated progressive anemia which is macrocytic -Will receive 3 units of PRBC Concurrent close monitoring of vitals given the chronic anemia patient will be transferred to PCU for the same -Progressive thrombocytopenia also -B12, folate levels -Iron panel -Concerns regarding bleeding is very low -If there is no increment of hemoglobin appropriately despite the transfusion, will consider GI consult #Falls: -Close monitoring and supervision -Likely because of symptomatic anemia -No trauma related to the fall -PT OT only after adequate correction of the anemia #Alzheimer's disease -Not on any medication at this time -Case management consult to discharge to her memory unit when ready #Depression: -Continue escitalopram #Dyslipidemia: Continue home atorvastatin 20 #DVT: Withhold anticoagulation at this time given the severe anemia and thrombocytopenia Charges/Coding Visit Charges Inpatient E&M: 89298 Init Hosp L2
[2024-10-11 17:02] LABS: Iron 181 ug/dL (50-170); Iron Binding Capacity,Total 205 ug/dL (250-450); PERCENT IRON SATURATION 88.3 % (15.0-55.0)
[2024-10-11] MEDS: MELATONIN 3 MG TABLET PO (22:47)
[2024-10-11] MEDS: Atorvastatin Calcium 20 MG Tablet PO (22:47)
[2024-10-11] MEDS: RisperiDONE 0.25 MG Tablet PO (22:47)
[2024-10-11] MEDS: 0.9% Saline Lock 10 ML Syringe IV (22:48)
[2024-10-12] VITALS (7 sets, daily range): BP systolic 105–144; BP diastolic 59–90; PULSE 55–80; RESP 16–18; TEMP 36.4–36.8; O2SAT 94–100
[2024-10-12 03:35] LABS: Absolute Lymphocyte Count 0.46 X10^3/uL (0.83-4.51); Absolute Neutrophil Count 0.2 X10^3/uL (2.0-7.7); Eosinophil# 0.01 X10^3/uL; Eosinophils% 1.5 % (0-5); Hematocrit 25.6 % (37-47); Hemoglobin 8.9 g/dL (12.0-15.0); Lymphocyte # 0.46 X10^3/ul (0.83-4.51); Lymphocyte % 69.7 % (19-41); Mean Corp Hgb Conc 34.8 g/dL (32-36); Mean Corpuscular Hgb 34.2 pg (27.0-32.0); Mean Corpuscular Volume 98.5 fL (81-99); Mean Platelet Vol. 11.3 fl (6.2-12.0); Monocyte# 0.02 X10^3/uL; NRBC Flagged by Analyzer 0 % (0-5); Neutrophil # 0.17 X10^3/uL (2.7-7.7); Neutrophil % 25.8 % (47-70); POSITIVE COUNT YES; POSITIVE DIFFERENTIAL YES; POSITIVE MORPHOLOGY YES; Platelet Count 65 K/mm3 (150-450); RBC Distribution Width CV 22.9 % (11.6-14.6)
[2024-10-12 04:00] LABS: ALB/GLOB Ratio 0.5 RATIO (0.9-2.4); AST(SGOT) 17 U/L (15-37); Alanine Aminotransfer ALT/SGPT 14 U/L (13-56); Albumin, Serum 2.4 g/dL (3.2-5.0); Alkaline Phosphatase 107 U/L (45-117); Anion Gap 6 (5-15); BUN 26 mg/dL (7-18); BUN/Creat Ratio 31.4 RATIO (10-20); Bilirubin, Direct 0.23 mg/dL (0.00-0.30); Calcium,Total 8.3 mg/dL (8.5-10.1); Chloride 113 mmol/L (98-107); Creatinine, Serum 0.83 mg/dL (0.55-1.02); EST Glomerular Filtration Rate 71 mL/min (>60); Est Glom Filt Rate - Afr Amer 86 mL/min (>60); Estimated Creatinine Clearance 41.71 ml/min; Globulin 4.6 g/dL (2.2-4.2); Glucose 101 mg/dL (74-106); Magnesium 2.1 mg/dL (1.6-2.6); Phosphorus 3.1 mg/dL (2.5-4.9); Potassium 3.7 mmol/L (3.5-5.1); Sodium Level 143 mmol/L (136-145)
[2024-10-12 04:08] LABS: International Normalized Ratio 1.4; Prothrombin Time (Protime)PT. 16.6 SECONDS (11.7-14.9)
[2024-10-12 04:14] LABS: Differential Indicated SCAN CRITERIA MET; White Blood Count 0.7 K/mm3 (4.4-11.0)
[2024-10-12 06:44] LABS: Anisocytosis 2+; Differential Comment SCANNED; Platelet Estimate SLT DEC (ADEQ)
[2024-10-12 08:42] LABS: Vitamin B12 676 pg/mL (211-911)
--- NOTE | 2024-10-12 09:51 | PN.HOSP_ITS ---
Reason for Visit Reason for Visit: Diagnoses Other pancytopenia (10/11/24) Subjective Subjective Patient is a 79-year-old lady with history of severe progressive dementia currently in the memory care unit brought to the emergency department following a fall. Patient was found to be pancytopenic admitted to a monitored bed for further management Objective Data Objective Data Vital Signs: Vital Signs Temp Pulse Resp BP Pulse Ox O2 Del Method O2 Flow Rate 98.3 F 66 16 135/60 H 98 Room Air 2 10/12/24 03:30 10/12/24 03:30 10/12/24 03:30 10/12/24 03:30 10/12/24 03:30 10/12/24 08:42 10/11/24 15:13 Oxygen Flow Rate (L/min) 2 Oxygen Delivery Method Room Air Weight: 47.3 kg Body Mass Index (BMI) 17.9 Intake & Output: Intake and Output for Last 24 Hours 10/10/24 10/11/24 10/12/24 23:59 23:59 23:59 Intake Total 1000 / 1000 500 / 500 Balance 1000 / 1000 500 / 500 Lab / Micro Data 10/12/24 03:26 10/12/24 03:26 Labs: Laboratory Results - last 24 hr 10/11/24 12:10: WBC Cancelled, Corrected WBC Cancelled, RBC Cancelled, Hgb Cancelled, Hct Cancelled, MCV Cancelled, MCH Cancelled, MCHC Cancelled, RDW Std Deviation Cancelled, RDW Coeff of Jonatan Cancelled, Plt Count Cancelled, MPV Cancelled, Immature Gran % (Auto) Cancelled, Neut % (Auto) Cancelled, Lymph % (Auto) Cancelled, King % (Auto) Cancelled, Eos % (Auto) Cancelled, Baso % (Auto) Cancelled, Absolute Neuts (auto) Cancelled, Absolute Lymphs (auto) Cancelled, Total Counted Cancelled, Neutrophils % (Manual) Cancelled, Band Neutrophils % Cancelled, Lymphocytes % (Manual) Cancelled, Monocytes % (Manual) Cancelled, Eosinophils % (Manual) Cancelled, Basophils % (Manual) Cancelled, Metamyelocytes % Cancelled, Myelocytes % Cancelled, Promyelocytes % Cancelled, Blast Cells % Cancelled, Plasma Cell % (Manual) Cancelled, Other Cells % Cancelled, Nucleated RBC % Cancelled, Nucleated RBCs/100 WBC Cancelled, Differential Comment Cancelled, Diff Path Review Cancelled, Hypersegmented Neuts Cancelled, Atypical Lymphocytes Cancelled, Reactive Lymphocytes Cancelled, Smudge Cells Cancelled, Toxic Granulation Cancelled, Toxic Vacuolation Cancelled, Dohle Bodies Cancelled, Casi Rods Cancelled, Platelet Estimate Cancelled, Plt Morphology Comment Cancelled, RBC Morphology Cancelled 10/11/24 12:10: RBC Morphology Cancelled, Polychromasia Cancelled, Hypochromasia Cancelled, Basophilic Stippling Cancelled, Anisocytosis Cancelled, Microcytosis Cancelled, Macrocytosis Cancelled, Spherocytes Cancelled, Sickle Cells Cancelled, Target Cells Cancelled, Tear Drop Cells Cancelled, Ovalocytes Cancelled, Stomatocytes Cancelled, [place] Bodies Cancelled, Darian Cells Cancelled, Bite Cells Cancelled, Crenated Cell Cancelled, Acanthocytes (Spur) Cancelled, Rouleaux Cancelled, Schistocytes Cancelled, Sodium 145, Potassium 3.9, Chloride 115 H, Carbon Dioxide 26.0, Anion Gap 4 L, BUN 36 H, Creatinine 0.90, Estim Creat Clear Calc 40.74, Est GFR (MDRD) Af Amer 78, Est GFR (MDRD) Non-Af 64, BUN/Creatinine Ratio 39.9 H, Glucose 95, Calcium 8.7, Iron 181 H, T IBC 205 L, Iron Saturation 88.3 H, Troponin I High Sens 11 10/11/24 13:05: Urine Color Yellow, Urine Clarity Clear, Urine pH 6.0, Ur Specific [place] 1.020, Urine Protein 15 H, Urine Glucose (UA) Normal, Urine Ketones Negative, Urine Occult Blood Negative, Urine Nitrite Negative, Urine Bilirubin Negative, Urine Urobilinogen Normal, Ur Leukocyte Esterase Negative, Urine RBC 0 SEEN, Urine WBC 0 SEEN, Ur Squamous Epith Cells 0 SEEN, Urine Bacteria 0 SEEN, Urine Mucus 0 SEEN 10/11/24 13:20: WBC 0.6 L*, RBC 0.87 L, Hgb 3.8 L*, Hct 11.5 L, MCV 132.2 H, MCH 43.7 H, MCHC 33.0, RDW Std Deviation 72.9 H, RDW Coeff of Jonatan 14.9 H, Plt Count 89 L, MPV 11.0, Immature Gran % (Auto) 0.000, Neut % (Auto) 35.9 L, Lymph % (Auto) 60.9 H, King % (Auto) 1.6, Eos % (Auto) 1.6, Baso % (Auto) 0.0, Absolute Neuts (auto) 0.2 L, Absolute Lymphs (auto) 0.39 L, Nucleated RBC % 0, Differential Comment SCANNED, Diff Path Review April foll, Toxic Granulation 3+, Platelet Estimate MOD DEC, Anisocytosis 2+ 10/11/24 13:52: Blood Type O POSITIVE, Antibody Screen NEGATIVE, Crossmatch See Detail 10/11/24 16:54: Vitamin B12 676 10/12/24 03:26: WBC 0.7 L*, RBC 2.60 L, Hgb 8.9 L, Hct 25.6 L, MCV 98.5 D, MCH 34.2 H, MCHC 34.8 D, RDW Std Deviation 75.0 H, RDW Coeff of Jonatan 22.9 H, Plt Count 65 L, MPV 11.3, Immature Gran % (Auto) 0.000, Neut % (Auto) 25.8 L, Lymph % (Auto) 69.7 H, King % (Auto) 3.0, Eos % (Auto) 1.5, Baso % (Auto) 0.0, A bsolute Neuts (auto) 0.2 L, Absolute Lymphs (auto) 0.46 L, Nucleated RBC % 0, Differential Comment SCANNED, Diff Path Review April foll, Platelet Estimate SLT DEC, Anisocytosis 2+, PT 16.6 H, INR 1.4, Sodium 143, Potassium 3.7, Chloride 113 H, Carbon Dioxide 24.0, Anion Gap 6, BUN 26 H, Creatinine 0.83, Estim Creat Clear Calc 41.71, Est GFR (MDRD) Af Amer 86, Est GFR (MDRD) Non-Af 71, B UN/Creatinine Ratio 31.4 H, Glucose 101, Calcium 8.3 L, Phosphorus 3.1, Magnesium 2.1, Total Bilirubin 0.90, Direct Bilirubin 0.23, AST 17, ALT 14, Alkaline Phosphatase 107, Total Protein 7.0, Albumin 2.4 L, Globulin 4.6 H, A lbumin/Globulin Ratio 0.5 L, TSH 2.240 Micro: Microbiology 10/11/24 13:50 Stool Stool Occult Blood (INDIRA) - Final Radiography Diagnostic Testing: Radiology Impression Brain CT 10/11/24 12:40 IMPRESSION: Chronic involutional changes of the brain. Electronically Signed: Glenn Iverson MD at 14:16 EST , Cervical Spine CT 10/11/24 12:40 IMPRESSION: Multilevel degenerative changes, as described above. Electronically Signed: Glenn Iverson MD at 14:22 EST , Chest X-Ray 10/11/24 12:40 IMPRESSION: No acute cardiopulmonary disease. Electronically Signed: Glenn Iverson MD at 14:26 EST , Physical Exam Narrative GENERAL: Minimally responsive HEENT: Atraumatic; normocephalic EYES; Anicteric, Normal Conjunctiva NECK; supple, normal thyroid, RESPIRATORY: Diminished to auscultation CARDIOVASCULAR: Regular S1 S2, GI: soft, normoactive bowel sounds, : No Renal angle tenderness; EXTREMITIES: No edema, no clubbing, MUSCULOSKELETAL: no muscle wasting NEURO: Awake; no lateralizing signs. SKIN: No Rash Assessment & Plan Assessment/Plan (1) Pancytopenia: PLAN: Plan Patient is a 79-year-old lady with history of severe progressive dementia currently in the memory care unit brought to the emergency department following a fall. Patient was found to be pancytopenic admitted to a monitored bed for further management 1. Pancytopenia ? Etiology not clear. Review of patient's CBCs did demonstrate progressive leukopenia.And mild anemia WBC count on admission was 0.7 hemoglobin was 3.8. Patient was transfused with 3 unit PRBC consultation placed to heme-onc 2. Physical deconditioning?physical debility due to age ? Requested for PT OT eval and clinical social work therapist to assist with discharge planning 3. Severe Alzheimer's disease ? Complicating care 4. Pulmonary hypertension ? Patient is on sildenafil 5. Dyslipidemia ?Patient is on statin therapy, continued at home dose 6. Depression ? Patient is on escitalopram 7. DVT prophylaxis ? Contraindicated given patient's severe pancytopenia Time spent in the patient's overall evaluation,decision-making process, review of diagnostic data, adjustment of management, discussion with other providers, nursing nursing and ancillary staff involved in patient's care documentation, 52 Minutes Charges/Coding Visit Charges Inpatient E&M: 64362 [facility] Hosp L3
[2024-10-12] MEDS: Escitalopram Oxalate 20 MG Tablet PO (09:56)
[2024-10-12] MEDS: RisperiDONE 0.25 MG Tablet PO ×2 (09:56→20:50)
[2024-10-12] MEDS: SILDENAFIL CITRATE 20 MG TABLET PO (10:02)
--- NOTE | 2024-10-12 11:01 | CASEMGMT ---
Addendum entered by Tawny Duncan 10/12/24 11:22: Pt currently receives services through [facility] and is a Full Code. SW updated. Tawny Duncan DC Planning Asst. Original Note: Discharge Planning Updates faxed to Shantelle Upton @ [facility]. Asked if pt was on hospice, receiving therapies, or uses [facility] (and agency names). Fax confirmation rec'd. Awaiting response. Tawny Duncan DC Planning Asst.
--- NOTE | 2024-10-12 12:52 | ONC.CONSULT ---
Assessment & Plan Assessment/Plan (1) Pancytopenia: Status: Acute Code(s): D61.818 - Other pancytopenia Plan: As evidenced by ANC 200, Hgb 3.8 (MCV 132.2) and platelet count 89,000 on admission yesterday. LFTs, Cr WNL, Hemoccult negative. Previous CBC data available in the EMR reviewed from 2017 to present. Macrocytosis has been evident since 2019. Clinical picture is very suspicious for bone marrow failure, MDS. This information and risk for infection were discussed clearly with patient's spouse. I do not recommend workup to include BMBX at this time as it would be of academic interest only. Given comorbidities, mainly cognitive dysfunction, advise against transfusion dependence and that she return to hospice care. Case discussed with Dr. Gonzalez who was in agreement with the aforementioned assessment and plan. HPI Consult Data Date of Service:: 10/12/24 PCP / Referring Provider: Dr. Chavez Andres MD Attending: Dr. Rashaun Knapp MD Chief Complaint Chief Complaint: Pancytopenia History of Present Illness History of Present Illness: Ms. Ines Livingston is a 79-year-old woman with a PMH for severe, progressive dementia, EDUARDO, pulmonary hypertension, osteoporosis, hyperlipidemia who presented to [facility] ED via squad subsequent to experiencing a fall at [facility] on 09/11/24. Fall was not witnessed but she reportedly sustained trauma to her head. CT brain and cervical spine showed chronic changes but no acute intracranial bleeding or fracture.? Infectious workup negative.??Labs were significant for pancytopenia as evidenced by WBC 0.6, ?Hgb 3.8, and platelets 89,000.? FOB stool negative. Patient is non verbal. Spouse revoked hospice services that were being provided to her while at [facility] and elected full code status for this admission. She has been given 3 units of PRBCs.? Interval History Interval History: Upon entering the room, patient is sitting upright in bed with legs bent close to her body. Spouse is at the bedside. Advanced Directives Power of Support Service Tech: Yes Living Will: Yes [facility] Medical History (Updated 10/11/24 @ 14:[address] Twan Rivas, DO) Alzheimer's dementia Osteoporosis High cholesterol Cataracts, bilateral Arthritis Home Medications ?Medication ?Instructions ?Recorded ?Last Taken ?Type atorvastatin 20 mg tablet 20 mg PO QHS HYPERLIPIDEMIA 05/29/22 10/10/24 History escitalopram oxalate 20 mg tablet 20 mg PO DAILY ANXIETY 05/29/22 10/11/24 History (Lexapro) acetaminophen 325 mg capsule 650 mg PO Q4H PRN fever or pain 10/11/24 Unknown History aspirin 81 mg tablet,delayed 81 mg PO DAILY HEART HEALTH 10/11/24 10/11/24 History release (Adult Low Dose Aspirin) bisacodyl 10 mg rectal suppository 10 mg DE DAILY PRN constipation 10/11/24 Unknown History doxycycline hyclate 100 mg capsule 100 mg PO BID SKIN INFECTION 10/11/24 10/11/24 History famotidine 20 mg tablet 20 mg PO DAILY GERD 10/11/24 10/11/24 History fluticasone propionate 50 2 spray intranasal DAILY PRN 10/11/24 Unknown History mcg/actuation nasal allergy symptoms spray,suspension (24 Hour Allergy Relief) loperamide 2 mg tablet (Diamode) 2 mg PO Q4H PRN loose stool 10/11/24 Unknown History lorazepam 0.5 mg tablet (Ativan) 0.5 mg PO Q4H PRN anxiety 10/11/24 Unknown History magnesium hydroxide 400 mg/5 mL 30 ml PO DAILY PRN constipation 10/11/24 Unknown History oral suspension (Gentle Laxative (magnesium hydroxide)) melatonin 3 mg tablet 3 mg PO QHS SLEEP 10/11/24 10/10/24 History morphine concentrate 20 mg/mL oral 5 mg sublingual Q4H PRN pain 10/11/24 Unknown History syringe (FOR ORAL USE ONLY) multivitamin (Daily Multi-Vitamin 1 tab PO DAILY SUPPLEMENT 10/11/24 10/11/24 History tablet) risperidone 0.25 mg tablet 0.25 mg PO BID BEHAVIORS 10/11/24 10/11/24 History sildenafil (pulm.hypertension) 20 20 mg PO DAILY HEALT MAINT. 10/11/24 10/11/24 History mg tablet Allergy/AdvReac Type Severity Reaction Status Date / Time danazol AdvReac Intermediate Rash Verified 10/11/24 12:12 metoclopramide (From Reglan) AdvReac Intermediate Other Verified 10/11/24 12:12 Family History Father CVA (cerebral vascular accident) Surgical History History of hysterectomy Social History Smoking Status: Never smoker second hand exposure: No alcohol intake: never substance use type: does not use what type of physical activity do you participate in: none akshat/jainism: Voodoo seatbelt use: always ROS Review of Systems ROS Unobtainable: due to mental status and other Details: spouse provides some history indicating he has noted a decline in her mental state, no fever/chills, weight loss, episodes of overt bleeding Physical Exam Const Constitutional Narrative: non verbal Orientation / Consciousness: awake; Negative for oriented to person, oriented to place or oriented to time Exam Limitations: altered mental status HEENT normocephalic and head/scalp atraumatic Eyes General Eye: normal appearance of both eyes Neck no lymphadenopathy Resp normal respiratory effort, no retractions and no use of accessory muscles Cardio regular rate and regular rhythm GI soft to palpation; Negative for hepatosplenomegaly or no masses Extremity Negative for no clubbing, cyanosis or edema Psych Memory / Cognition: cognition impaired Vital Signs Temperature 97.6 F L 10/12/24 09:54 Temperature Source Oral 10/12/24 09:54 Pulse Rate 55 L 10/12/24 09:54 Respiratory Rate 16 10/12/24 09:54 Respiratory Effort Normal, Non-Labored 10/12/24 08:42 Respiratory Depth Normal 10/12/24 08:42 Respiratory Pattern Normal 10/12/24 08:42 Blood Pressure 130/68 H 10/12/24 09:54 Blood Pressure Mean 88 10/12/24 09:54 Blood Pressure Source Monitor 10/12/24 09:54 Blood Pressure Position Semi-Fowlers 10/12/24 09:54 Blood Pressure Location Right Arm 10/12/24 09:54 Pulse Ox 94 10/12/24 09:54 Oxygen Delivery Method Room Air 10/12/24 09:54 Oxygen Flow Rate (L/min) 2 10/11/24 15:13 Laboratory Results - last 24 hr 10/11/24 12:10: WBC Cancelled, Corrected WBC Cancelled, RBC Cancelled, Hgb Cancelled, Hct Cancelled, MCV Cancelled, MCH Cancelled, MCHC Cancelled, RDW Std Deviation Cancelled, RDW Coeff of Jonatan Cancelled, Plt Count Cancelled, MPV Cancelled, Immature Gran % (Auto) Cancelled, Neut % (Auto) Cancelled, Lymph % (Auto) Cancelled, [place] % (Auto) Cancelled, Eos % (Auto) Cancelled, Baso % (Auto) Cancelled, Absolute Neuts (auto) Cancelled, Absolute Lymphs (auto) Cancelled, Total Counted Cancelled, Neutrophils % (Manual) Cancelled, Band Neutrophils % Cancelled, Lymphocytes % (Manual) Cancelled, Monocytes % (Manual) Cancelled, Eosinophils % (Manual) Cancelled, Basophils % (Manual) Cancelled, Metamyelocytes % Cancelled, Myelocytes % Cancelled, Promyelocytes % Cancelled, Blast Cells % Cancelled, Plasma Cell % (Manual) Cancelled, Other Cells % Cancelled, Nucleated RBC % Cancelled, Nucleated RBCs/100 WBC Cancelled, Differential Comment Cancelled, Diff Path Review Cancelled, Hypersegmented Neuts Cancelled, Atypical Lymphocytes Cancelled, Reactive Lymphocytes Cancelled, Smudge Cells Cancelled, Toxic Granulation Cancelled, Toxic Vacuolation Cancelled, Dohle Bodies Cancelled, Casi Rods Cancelled, Platelet Estimate Cancelled, Plt Morphology Comment Cancelled, RBC Morphology Cancelled 10/11/24 12:10: RBC Morphology Cancelled, Polychromasia Cancelled, Hypochromasia Cancelled, Basophilic Stippling Cancelled, Anisocytosis Cancelled, Microcytosis Cancelled, Macrocytosis Cancelled, Spherocytes Cancelled, Sickle Cells Cancelled, Target Cells Cancelled, Tear Drop Cells Cancelled, Ovalocytes Cancelled, Stomatocytes Cancelled, [place] Bodies Cancelled, Darian Cells Cancelled, Bite Cells Cancelled, Crenated Cell Cancelled, Acanthocytes (Spur) Cancelled, Rouleaux Cancelled, Schistocytes Cancelled, Sodium 145, Potassium 3.9, Chloride 115 H, Carbon Dioxide 26.0, Anion Gap 4 L, BUN 36 H, Creatinine 0.90, Estim Creat Clear Calc 40.74, Est GFR (MDRD) Af Amer 78, Est GFR (MDRD) Non-Af 64, BUN/Creatinine Ratio 39.9 H, Glucose 95, Calcium 8.7, Iron 181 H, TIBC 205 L, Iron Saturation 88.3 H, Troponin I High Sens 11 10/11/24 13:05: Urine Color Yellow, Urine Clarity Clear, Urine pH 6.0, Ur Specific Sundown 1.020, Urine Protein 15 H, Urine Glucose (UA) Normal, Urine Ketones Negative, Urine Occult Blood Negative, Urine Nitrite Negative, Urine Bilirubin Negative, Urine Urobilinogen Normal, Ur Leukocyte Esterase Negative, Urine RBC 0 SEEN, Urine WBC 0 SEEN, Ur Squamous Epith Cells 0 SEEN, Urine Bacteria 0 SEEN, Urine Mucus 0 SEEN 10/11/24 13:20: WBC 0.6 L*, RBC 0.87 L, Hgb 3.8 L*, Hct 11.5 L, MCV 132.2 H, MCH 43.7 H, MCHC 33.0, RDW Std Deviation 72.9 H, RDW Coeff of Jonatan 14.9 H, Plt Count 89 L, MPV 11.0, Immature Gran % (Auto) 0.000, Neut % (Auto) 35.9 L, Lymph % (Auto) 60.9 H, Lenoir % (Auto) 1.6, Eos % (Auto) 1.6, Baso % (Auto) 0.0, Absolute Neuts (auto) 0.2 L, Absolute Lymphs (auto) 0.39 L, Nucleated RBC % 0, Differential Comment SCANNED, Diff Path Review May tera, Toxic Granulation 3+, Platelet Estimate MOD DEC, Anisocytosis 2+ 10/11/24 13:52: Blood Type O POSITIVE, Antibody Screen NEGATIVE, Crossmatch See Detail 10/11/24 16:54: Vitamin B12 676 10/12/24 03:26: WBC 0.7 L*, RBC 2.60 L, Hgb 8.9 L, Hct 25.6 L, MCV 98.5 D, MCH 34.2 H, MCHC 34.8 D, RDW Std Deviation 75.0 H, RDW Coeff of Jonatan 22.9 H, Plt Count 65 L, MPV 11.3, Immature Gran % (Auto) 0.000, Neut % (Auto) 25.8 L, Lymph % (Auto) 69.7 H, Lenoir % (Auto) 3.0, Eos % (Auto) 1.5, Baso % (Auto) 0.0, Absolute Neuts (auto) 0.2 L, Absolute Lymphs (auto) 0.46 L, Nucleated RBC % 0, Differential Comment SCANNED, Diff Path Review May tera, Platelet Estimate SLT DEC, Anisocytosis 2+, PT 16.6 H, INR 1.4, Sodium 143, Potassium 3.7, Chloride 113 H, Carbon Dioxide 24.0, Anion Gap 6, BUN 26 H, Creatinine 0.83, Estim Creat Clear Calc 41.71, Est GFR (MDRD) Af Amer 86, Est GFR (MDRD) Non-Af 71, BUN/Creatinine Ratio 31.4 H, Glucose 101, Calcium 8.3 L, Phosphorus 3.1, Magnesium 2.1, Total Bilirubin 0.90, Direct Bilirubin 0.23, AST 17, ALT 14, Alkaline Phosphatase 107, Total Protein 7.0, Albumin 2.4 L, Globulin 4.6 H, Albumin/Globulin Ratio 0.5 L, TSH 2.240 Microbiology 10/11/24 13:50 Stool Stool Occult Blood (INDIRA) - Final Diagnostic Data Brain CT 10/11/24 12:40 IMPRESSION: Chronic involutional changes of the brain. Electronically Signed: Glenn Iverson MD at 14:16 EST Reading Location ID and State: [facility] / [place] , Service support , Cervical Spine CT 10/11/24 12:40 IMPRESSION: Multilevel degenerative changes, as described above. Electronically Signed: Glenn Iverson MD at 14:22 EST Reading Location ID and State: [facility] / [place] , Service support , Chest X-Ray 10/11/24 12:40 IMPRESSION: No acute cardiopulmonary disease. Electronically Signed: Glenn Iverson MD at 14:26 EST ,
[2024-10-12 14:30] LABS: Pathologist Review Reviewed
[2024-10-12] MEDS: MELATONIN 3 MG TABLET PO (20:50)
[2024-10-12] MEDS: Atorvastatin Calcium 20 MG Tablet PO (20:50)
[2024-10-13 05:47] LABS: Absolute Lymphocyte Count 0.41 X10^3/uL (0.83-4.51); Absolute Neutrophil Count 0.2 X10^3/uL (2.0-7.7); Eosinophil# 0.01 X10^3/uL; Eosinophils% 1.7 % (0-5); Hematocrit 26.2 % (37-47); Hemoglobin 8.8 g/dL (12.0-15.0); Lymphocyte # 0.41 X10^3/ul (0.83-4.51); Lymphocyte % 68.3 % (19-41); Mean Corp Hgb Conc 33.6 g/dL (32-36); Mean Corpuscular Hgb 33.6 pg (27.0-32.0); Mean Platelet Vol. 11.5 fl (6.2-12.0); NRBC Flagged by Analyzer 0 % (0-5); Neutrophil # 0.18 X10^3/uL (2.7-7.7); POSITIVE COUNT YES; POSITIVE DIFFERENTIAL YES; POSITIVE MORPHOLOGY YES; RBC Distribution Width CV 23.2 % (11.6-14.6); RBC Distribution Width SD 82.3 fl (35.1-43.9); Red Blood Count 2.62 M/mm3 (4.2-5.4)
[2024-10-13 06:00] VITALS: BP 126/75; PULSE 64; RESP 16; TEMP 36.3; O2SAT 94
[2024-10-13 06:00] LABS: White Blood Count 0.6 K/mm3 (4.4-11.0)
[2024-10-13 06:01] LABS: Platelet Count 65 K/mm3 (150-450)
[2024-10-13 06:05] LABS: AST(SGOT) 10 U/L (15-37); Alanine Aminotransfer ALT/SGPT 16 U/L (13-56); Albumin, Serum 2.2 g/dL (3.2-5.0); Alkaline Phosphatase 101 U/L (45-117); Anion Gap 5 (5-15); BUN 21 mg/dL (7-18); BUN/Creat Ratio 29.6 RATIO (10-20); Bilirubin, Direct 0.15 mg/dL (0.00-0.30); Calcium,Total 8.5 mg/dL (8.5-10.1); Chloride 110 mmol/L (98-107); Creatinine, Serum 0.71 mg/dL (0.55-1.02); EST Glomerular Filtration Rate 85 mL/min (>60); Est Glom Filt Rate - Afr Amer 102 mL/min (>60); Estimated Creatinine Clearance 43.28 ml/min; Globulin 4.6 g/dL (2.2-4.2); Glucose 100 mg/dL (74-106); Magnesium 2.2 mg/dL (1.6-2.6); Phosphorus 2.9 mg/dL (2.5-4.9); Potassium 3.6 mmol/L (3.5-5.1); Protein, Total 6.8 g/dL (6.4-8.2); Sodium Level 140 mmol/L (136-145)
[2024-10-13 06:37] LABS: Differential Comment SCANNED; Platelet Estimate MKD DEC (ADEQ)
[2024-10-13 06:38] LABS: Macrocytosis 1+
--- NOTE | 2024-10-13 07:48 | PCM.PN.HOSP ---
Reason for Visit Reason for Visit: Diagnoses Other pancytopenia (10/11/24) Subjective Subjective Patient seen appears comfortable. Was seen in consultation by heme-onc decision was made not to pursue any aggressive diagnostic evaluation including bone marrow. Also had a discussion with family plan is to change patient CODE STATUS to DNR comfort care with hospice reconsulted Objective Data Objective Data Vital Signs: Vital Signs Temp Pulse Resp BP Pulse Ox O2 Del Method O2 Flow Rate 97.4 F L 64 16 126/75 H 94 Room Air 2 10/13/24 06:00 10/13/24 06:00 10/13/24 06:00 10/13/24 06:00 10/13/24 06:00 10/13/24 06:06 10/11/24 15:13 Oxygen Flow Rate (L/min) 2 Oxygen Delivery Method Room Air Weight: 47.3 kg Body Mass Index (BMI) 17.9 Intake & Output: Intake and Output for Last 24 Hours 10/11/24 10/12/24 10/13/24 23:59 23:59 23:59 Intake Total 1000 / 1000 680 / 880 320 / 320 Balance 1000 / 1000 680 / 880 320 / 320 Lab / Micro Data 10/13/24 05:29 10/13/24 05:29 Labs: Laboratory Results - last 24 hr 10/11/24 13:20: Diff Path Review Reviewed 10/11/24 16:54: Vitamin B12 676 10/13/24 05:29: WBC 0.6 L*, RBC 2.62 L, Hgb 8.8 L, Hct 26.2 L, MCV 100.0 H, MCH 33.6 H, MCHC 33.6, RDW Std Deviation 82.3 H, RDW Coeff of Jonatan 23.2 H, Plt Count 65 L, MPV 11.5, Immature Gran % (Auto) 0.000, Neut % (Auto) 30.0 L, Lymph % (Auto) 68.3 H, [place] % (Auto) 0.0, Eos % (Auto) 1.7, Baso % (Auto) 0.0, Absolute Neuts (auto) 0.2 L, Absolute Lymphs (auto) 0.41 L, Nucleated RBC % 0, Differential Comment SCANNED, Diff Path Review May foll, Platelet Estimate MKD DEC, Macrocytosis 1+, Sodium 140, Potassium 3.6, Chloride 110 H, Carbon Dioxide 25.0, Anion Gap 5, BUN 21 H, Creatinine 0.71, Estim Creat Clear Calc 43.28, Est GFR (MDRD) Af Amer 102, Est GFR (MDRD) Non-Af 85, BUN/Creatinine Ratio 29.6 H, Glucose 100, Calcium 8.5, Phosphorus 2.9, Magnesium 2.2, Total Bilirubin 0.40, Direct Bilirubin 0.15, AST 10 L, ALT 16, Alkaline Phosphatase 101, Total Protein 6.8, Albumin 2.2 L, Globulin 4.6 H Micro: Microbiology 10/11/24 13:50 Stool Stool Occult Blood (INDIRA) - Final Physical Exam Narrative GENERAL: Minimally responsive HEENT: Atraumatic; normocephalic EYES; Anicteric, Normal Conjunctiva NECK; supple, normal thyroid, RESPIRATORY: Diminished to auscultation CARDIOVASCULAR: Regular S1 S2, GI: soft, normoactive bowel sounds, : No Renal angle tenderness; EXTREMITIES: No edema, no clubbing, MUSCULOSKELETAL: no muscle wasting NEURO: Awake; no lateralizing signs. SKIN: No Rash Assessment & Plan Assessment/Plan (1) Pancytopenia: PLAN: Plan Patient is a 79-year-old lady with history of severe progressive dementia currently in the memory care unit brought to the emergency department following a fall. Patient was found to be pancytopenic admitted to a monitored bed for further management 1. Pancytopenia ? Etiology not clear. Review of patient's CBCs did demonstrate progressive leukopenia.And mild anemia WBC count on admission was 0.7 hemoglobin was 3.8. Patient was transfused with 3 unit PRBC consultation placed to heme-onc ? 10/13/2024;Patient seen appears comfortable. Was seen in consultation by heme-onc decision was made not to pursue any aggressive diagnostic evaluation including bone marrow. Also had a discussion with family plan is to change patient CODE STATUS to DNR comfort care with hospice reconsulted 2. Physical deconditioning?physical debility due to age ? Requested for PT OT eval and social and human services assistant to assist with discharge planning 3. Severe Alzheimer's disease ? Complicating care 4. Pulmonary hypertension ? Patient is on sildenafil 5. Dyslipidemia ?Patient is on statin therapy, continued at home dose 6. Depression ? Patient is on escitalopram 7. Underweight with bmi of 17.9 8. DVT prophylaxis ? Contraindicated given patient's severe pancytopenia Time spent in the patient's overall evaluation,decision-making process, review of diagnostic data, adjustment of management, discussion with other providers, nursing nursing and ancillary staff involved in patient's care documentation, 35 Minutes Advance planning; did discuss with the patient's family regarding advanced directives as well as CODE STATUS. Did explain the various scenarios involved ( FULL CODE, DNR CCA, DNR CCA with no intubation, and DNR CC and what each meant) patient's family elected to to change CODE STATUS from full code to DNR comfort. Order was placed. Time spent on discussion 18 minutes. Charges/Coding Multi Select Codes Visit Charges Visit Charges: 47087 [facility] Hospitalists' Procedures Procedures: 34266 Advncd Care Plan 30 Min
[2024-10-13] MEDS: RisperiDONE 0.25 MG Tablet PO (10:27)
[2024-10-13] MEDS: Escitalopram Oxalate 20 MG Tablet PO (10:27)
[2024-10-13] MEDS: SILDENAFIL CITRATE 20 MG TABLET PO (10:27)
--- NOTE | 2024-10-13 10:46 | DS.PCM_ITS ---
Providers Date of Admission: 10/11/24 Date of Discharge: 11/04/24 Primary Care Physician: Dr. Chavez Andres MD Consultations 10/12/24 09:59 Consult: Oncology/Hematology Routine Consulting Provider: *[facility] Reason for Consult: Pancytopenia EMERGENT Consult: No MD Notified: Yes Date Notified: 10/12/24 Time Notified: 10:10 Method of Notification: Verbal Reason For Visit: PANCYTOPENIA Diagnosis Discharge Diagnosis (1) Pancytopenia: Status: Acute Code(s): D61.818 - Other pancytopenia Plan Patient is a 79-year-old lady with history of severe progressive dementia currently in the memory care unit brought to the emergency department following a fall. Patient was found to be pancytopenic admitted to a monitored bed for further management 1. Pancytopenia ? Etiology not clear. Review of patient's CBCs did demonstrate progressive leukopenia.And mild anemia WBC count on admission was 0.7 hemoglobin was 3.8. Patient was transfused with 3 unit PRBC consultation placed to heme-onc ? 10/13/2024;Patient seen appears comfortable. Was seen in consultation by heme-onc decision was made not to pursue any aggressive diagnostic evaluation including bone marrow. Also had a discussion with family plan is to change patient CODE STATUS to DNR comfort care with hospice reconsulted 2. Physical deconditioning?physical debility due to age ? Requested for PT OT eval and administrator social welfare to assist with discharge planning 3. Severe Alzheimer's disease ? Complicating care 4. Pulmonary hypertension ? Patient is on sildenafil 5. Dyslipidemia ?Patient is on statin therapy, continued at home dose 6. Depression ? Patient is on escitalopram 7. Underweight with bmi of 17.9 8. DVT prophylaxis ? Contraindicated given patient's severe pancytopenia Time spent in the patient's overall evaluation,decision-making process, review of diagnostic data, adjustment of management, discussion with other providers, nursing nursing and ancillary staff involved in patient's care documentation, 35 Minutes Medications at Discharge Home Medications atorvastatin 20 mg tablet 20 mg PO QHS HYPERLIPIDEMIA 05/29/22 escitalopram oxalate 20 mg tablet (Lexapro) 20 mg PO DAILY ANXIETY 05/29/22 acetaminophen 325 mg capsule 650 mg PO Q4H PRN fever or pain 10/11/24 bisacodyl 10 mg rectal suppository 10 mg OK DAILY PRN constipation 10/11/24 famotidine 20 mg tablet 20 mg PO DAILY GERD 10/11/24 fluticasone propionate 50 mcg/actuation nasal spray,suspension (24 Hour Allergy Relief) 2 spray intranasal DAILY PRN allergy symptoms 10/11/24 loperamide 2 mg tablet (Diamode) 2 mg PO Q4H PRN loose stool 10/11/24 lorazepam 0.5 mg tablet (Ativan) 0.5 mg PO Q4H PRN anxiety 10/11/24 magnesium hydroxide 400 mg/5 mL oral suspension (Gentle Laxative (magnesium hydroxide)) 30 ml PO DAILY PRN constipation 10/11/24 melatonin 3 mg tablet 3 mg PO QHS SLEEP 10/11/24 morphine concentrate 20 mg/mL oral syringe (FOR ORAL USE ONLY) 5 mg sublingual Q4H PRN pain 10/11/24 multivitamin (Daily Multi-Vitamin tablet) 1 tab PO DAILY SUPPLEMENT 10/11/24 risperidone 0.25 mg tablet 0.25 mg PO BID BEHAVIORS 10/11/24 sildenafil (pulm.hypertension) 20 mg tablet 20 mg PO DAILY HEALT MAINT. 10/11/24 Physical Exam Narrative GENERAL: Interactive HEENT: Atraumatic; normocephalic EYES; Anicteric, Normal Conjunctiva NECK; supple, normal thyroid, RESPIRATORY: Diminished to auscultation CARDIOVASCULAR: Regular S1 S2, GI: soft, normoactive bowel sounds, : No Renal angle tenderness; EXTREMITIES: No edema, no clubbing, MUSCULOSKELETAL: no muscle wasting NEURO: Awake; no lateralizing signs. SKIN: No Rash Weight / BMI Weight Weight: 47.3 kg Body Mass Index (BMI) 17.9 ABG / Lab / Microbiology Data 10/13/24 05:29 10/13/24 05:29 Laboratory: Laboratory Results - last 24 hr 10/11/24 13:20: Diff Path Review Reviewed 10/13/24 05:29: WBC 0.6 L*, RBC 2.62 L, Hgb 8.8 L, Hct 26.2 L, MCV 100.0 H, MCH 33.6 H, MCHC 33.6, RDW Std Deviation 82.3 H, RDW Coeff of Jonatan 23.2 H, Plt Count 65 L, MPV 11.5, Immature Gran % (Auto) 0.000, Neut % (Auto) 30.0 L, Lymph % (Auto) 68.3 H, Dickens % (Auto) 0.0, Eos % (Auto) 1.7, Baso % (Auto) 0.0, Absolute Neuts (auto) 0.2 L, Absolute Lymphs (auto) 0.41 L, Nucleated RBC % 0, Differential Comment SCANNED, Diff Path Review May foll, Platelet Estimate MKD DEC, Macrocytosis 1+, Sodium 140, Potassium 3.6, Chloride 110 H, Carbon Dioxide 25.0, Anion Gap 5, BUN 21 H, Creatinine 0.71, Estim Creat Clear Calc 43.28, Est GFR (MDRD) Af Amer 102, Est GFR (MDRD) Non-Af 85, BUN/Creatinine Ratio 29.6 H, Glucose 100, Calcium 8.5, Phosphorus 2.9, Magnesium 2.2, Total Bilirubin 0.40, Direct Bilirubin 0.15, AST 10 L, ALT 16, Alkaline Phosphatase 101, Total Protein 6.8, Albumin 2.2 L, Globulin 4.6 H Microbiology: Microbiology 10/11/24 13:50 Stool Stool Occult Blood (INDIRA) - Final D/C Instructions Discharge Diet: No restrictions Discharge Activity: Return to Normal Activity Call your doctor if you observe: Fever of 101 or Higher, Shortness of breath, Fainting spells and Chest pain Meaningful Use Info Meaningful Use Meaningful Use Diagnoses (Choose all that apply): None applicable Ischemic Stroke Statin Dosing Therapy Reference: STATIN DOSE THERAPY REFERENCE: * Patients > 75 years receive moderate or high dose statin therapy. * Patients 75 years or YOUNGER should receive HIGH intensity statin dose unless contraindicated. You will be required to document reason for non-treatment if statin daily dose does not meet guidelines. HIGH DOSE STATIN THERAPY DAILY Atorvastatin > than or = to 40 mg Rosuvastatin > than or = to 20 mg Amlodipine + Atorvastatin > than or = to 2.5/40 mg Ezetimibe + Simvastatin 10/80 mg Simvastatin 80mg Discharge Plan Admission Admit Date/Time: 10/11/24 14:48 Attending Provider: Rashaun Knapp Primary Care Provider: Chavez Andres Consulting Providers: Tanisha Sanford; Rashaun Gracia; Corwin Gonzalez; Andrea Langford; Gato Benz; Kyrie West; Enrico Acosta; Dallin Joaquin; Silva Michele COVERAGE ANALYST Discharge Orders/Prescriptions Prescriptions: Continued escitalopram oxalate [Lexapro] 20 mg tablet 20 mg PO DAILY atorvastatin 20 mg tablet 20 mg PO QHS lorazepam [Ativan] 0.5 mg tablet 0.5 mg PO Q4H PRN (Reason: anxiety) bisacodyl 10 mg suppository 10 mg OK DAILY PRN (Reason: constipation) famotidine 20 mg tablet 20 mg PO DAILY fluticasone propionate [24 Hour Allergy Relief] 50 mcg/actuation spray,suspension 2 spray intranasal DAILY PRN (Reason: allergy symptoms) Rx Instructions: administer into each nostril loperamide [Diamode] 2 mg tablet 2 mg PO Q4H PRN (Reason: loose stool) Rx Instructions: administer after each loose stool until symptoms controlled; do not exceed 8 mg per 24 hrs melatonin 3 mg tablet 3 mg PO QHS magnesium hydroxide [Gentle Laxative (mag hydrox)] 400 mg/5 mL suspension 30 ml PO DAILY PRN (Reason: constipation) morphine concentrate 20 mg/mL syringe 5 mg sublingual Q4H PRN (Reason: pain) multivitamin [Daily Multi-Vitamin] Tablet 1 tab PO DAILY risperidone 0.25 mg tablet 0.25 mg PO BID sildenafil (pulm.hypertension) 20 mg tablet 20 mg PO DAILY acetaminophen 325 mg capsule 650 mg PO Q4H PRN (Reason: fever or pain) Discontinued aspirin [Adult Low Dose Aspirin] 81 mg tablet,delayed release (DR/EC) 81 mg PO DAILY doxycycline hyclate 100 mg capsule 100 mg PO BID Rx Instructions: X10D END DATE 10/13/24 Referrals / Follow Up: Chavez Andres MD [Primary Care Provider] - Within 1 Week Disposition Disposition (needs filled in before D/C Order can be placed): Hospice in Home Charges/Coding Visit Charges Inpatient E&M: 99784 Disch Hosp >30min
--- NOTE | 2024-10-13 11:03 | CASEMGMT ---
Addendum entered by Amy Rodriguez 10/13/24 11:10: ERICA sent d/c summary and DNR to Shanae with [facility]. ERICA also let Shanae know that patient will be picked up at . Amy PAULINO Original Note: Patient is ready for discharge back to [place] today. ERICA spoke with patient's and transport will need to be arranged. ERICA notified Shanae with [facility] that patient will be returning to [place] today. ERICA will send d/c instructions and DNR form to Shanae with Hospice. Amy PAULINO
--- NOTE | 2024-10-13 11:15 | CASEMGMT ---
Discharge Planning Discharge instructions and transport time faxed to Shantelle Upton @ [facility]. Physicians will transport patient by cot at 1p. Nursing, SW, and pts updated. Tawny Duncan DC Planning Asst.
[2024-10-13 12:00] VITALS: BP 104/72; PULSE 64; RESP 16; TEMP 36.8; O2SAT 96
[2024-10-13 13:36] LABS: Pathologist Review Reviewed
[2024-10-13 13:49] LABS: Pathologist Review Reviewed
== END 2024-10-13 13:07 | disposition hospice, home (50) | DRG 809 ==
LOC: ED 14:39 → PCU 14:55
PROVIDERS: Nurse Practitioner; Admitting Provider Internal Medicine; Emergency Provider Emergency Medicine; PCP Family Medicine; Visit Provider Internal Medicine
DX: D61.818 Other pancytopenia (principal); Z68.1 Body mass index [BMI] 19.9 or less, adult; I27.20 Pulmonary hypertension, unspecified; Z66 Do not resuscitate; G30.9 Alzheimer's disease, unspecified; F32.A Depression, unspecified; F02.80 Dementia in other diseases classified elsewhere, unspecified severity, without behavioral disturbance, psychotic disturbance, mood disturbance, and anxiety; E78.00 Pure hypercholesterolemia, unspecified; F41.9 Anxiety disorder, unspecified; R63.6 Underweight
CPT/HCPCS: 36415; 70450; 71045; 72125; 80048; 80053; 80076; 81001; 82248; 82274; 82607; 83540; 83550; 83735; 84100; 84443; 84484; 85025; 85610; 86850; 86900; 86901; 86920; 86922; 93005; 99285; P9016; A4216